=== PATIENT | female | born 1960 | race Caucasian/White ===

== ENCOUNTER 2022-07-26 11:25 | Inpatient (IN) | payer OTHER, SELFPAY ==
--- NOTE | 2022-07-26 11:36 | P.CONHOSP_ITS ---
History of Present Illness Data of Consult Service Date: 07/26/22 Primary Care Provider: Андрей Beth MD HPI Reason for consult: Admission H&P Pt is a 62-year-old female with a PMH significant for?COPD, [id number] ependent diabetes, IBS, depression, schizoaffective disorder depressive type, and s/p lap band surgery in 2007 who is admitted to [facility] for possible intentional ingestion of four days worth of medications and increasing forgetfulness over the past year. Medical consult for admission H&P. ?Pt initially presented to [facility] ED on 07/19. Was diagnosed with pneumonia outpatient but did not start abx until admitted to hospital, finished a 5-day course of azithromycin on 07/24. Pt currently complains of cough x2 weeks, occasionally productive of whitish sputum. Denies SOB. Has chronic hip pain s econdary to arthritis. Complains of chronic constipation, says has not had a bowel movement recently and that linaclotide is the only medication that works for her. Otherwise has no acute complaints. Denies chest pain/pressure, palpitations. No fever, chills, N/V, diarrhea. Denies abdominal pain. Labs reviewed, significant for slightly low B12 of 179. Review of Systems Review of Systems: Cough x2 weeks, occasionally productive of whitish sputum Chronic constipation Chronic bilateral hip pain Denies shortness of breath No chest pain/pressure, palpitations Denies fever, chills, nausea, vomiting, diarrhea No abdominal pain Yes all other systems are reviewed and are negative PMFSH Social History Household Members: Family Household Members Other:: lives with cousin [facility] Housing: Apartment Do you presently have visiting nurse or other home services: No Patient Tobacco Use Status: Current everyday Tobacco user Tobacco use type: Cigarette Cigarette Packs Per Day: 1 Cigarettes Per Day: 6 Smoked in Last 30 Days: Yes e-Cigarette/Vaping Use: Never Used Patient Interested in Nicotine Replacement: Yes Patient Given Instructions on How to Stop Smoking: Yes Date Education Initiated: 07/26/22 Second Hand Smoke Exposure: Yes Use of substances other than those prescribed or required for medical reasons: No Currently Displaying Signs/Symptoms of Drug Intoxication Withdrawal: No Any prior treatment program specific to substance use: No Have you been hit, kicked, punched, or otherwise hurt by someone within the past year? If so, by whom?: No Do you feel safe in your current relationship?: Yes Is there a partner from a previous relationship who is making you feel unsafe now?: No Are you made to feel afraid or neglected: No Advance Directives: No Advance Directives Information Provided: No (Declined) Do you have thoughts of harming others: None and Vague Do you have a plan to hurt others: No Plan Recently lost weight without trying: No How much weight loss: Not applicable Eating poorly because of decreased appetite: Yes Nutrition screen score: 1 Nutrition Risks: Poor intake 0-25% >4 days Patient : No : No Poor oral hygiene: No Meds Allergies Allergy/AdvReac Type Severity Reaction Status Date / Time bupropion [From WELLBUTRIN] Allergy Unknown ITCHING Unverified 07/15/20 14:14 morphine [MORPHINE] Allergy Unknown ITCHING Unverified 07/15/20 14:14 nicotine [From Nicoderm CQ] AdvReac Mild SKIN Unverified 07/15/20 14:14 IRRITATION Active Medications: Current Medications Acetaminophen (Acetaminophen 325 Mg Tablet) 650 mg PO Q6H PRN PRN Reason: Headache/Pain Mild Scale (1-3) Al Hydroxide/Mg Hydroxide (Magnesium Hydrox/Alum Hydrox 30 Ml Oral.Susp) 30 ml PO Q6H PRN PRN Reason: Heartburn/Nausea Hydroxyzine HCl (Hydroxyzine Hcl 25 Mg Tablet) 25 mg PO Q6H PRN PRN Reason: Anxiety Magnesium Hydroxide (Milk Of Magnesia 30 Ml Oral.Susp) 30 ml PO DAILY PRN PRN Reason: Constipation Trazodone HCl (Trazodone Hcl 50 Mg Tablet) 50 mg PO BEDTIME MRX1 PRN PRN Reason: Insomnia Home Medications Medication Instructions Recorded Confirmed Last Taken Type albuterol sulfate 90 mcg/actuation 90 mcg inhalation 4-6XD 07/25/22 07/25/22 Unknown History aerosol inhaler (Ventolin HFA) atorvastatin 10 mg tablet 10 mg PO DAILY 07/25/22 07/25/22 Unknown History azithromycin 500 tab PO DAILY 07/25/22 07/25/22 Unknown History benzonatate 100 mg capsule 100 mg PO TID 07/25/22 07/25/22 Unknown History cholecalciferol (vitamin D3) 2,000 units PO DAILY 07/25/22 07/25/22 Unknown History clonazepam 0.5 mg tablet 0.5 mg PO TID PRN Anxiety 07/25/22 07/25/22 Unknown History cyanocobalamin (vitamin B-12) See Rx Instructions .Route .COMPLEX 07/25/22 07/25/22 Unknown History 1,000 mcg tablet docusate sodium 100 mg capsule 100 mg PO DAILY 07/25/22 07/25/22 Unknown History enoxaparin 40 mg/0.4 mL 40 mg subcut DAILY 07/25/22 07/25/22 Unknown History subcutaneous syringe (Lovenox) gabapentin 300 mg capsule 400 mg PO TID 07/25/22 07/25/22 Unknown History linaclotide 145 mcg capsule 145 mcg PO DAILY 07/25/22 07/25/22 Unknown History (Linzess) lurasidone 80 mg tablet 80 mg PO DAILY 07/25/22 07/25/22 Unknown History metformin 500 mg tablet 500 mg PO BID 07/25/22 07/25/22 Unknown History montelukast 10 mg tablet 10 mg PO DAILY 07/25/22 07/25/22 Unknown History nicotine 14 mg/24 hr daily 1 patch topical DAILY 07/25/22 07/25/22 Unknown History transdermal patch omeprazole 20 mg capsule,delayed 20 mg PO DAILY 07/25/22 07/25/22 Unknown History release quetiapine 200 mg tablet 200 mg PO BEDTIME 07/25/22 07/25/22 Unknown History quetiapine 50 mg tablet 75 mg PO BID 07/25/22 07/25/22 Unknown History topiramate 100 mg tablet 100 mg PO DAILY 07/25/22 07/25/22 Unknown History vilazodone 40 mg tablet (Viibryd) 40 mg PO DAILY 07/25/22 07/25/22 Unknown History vitamin B complex (Vitamins B 1 tab PO DAILY 07/25/22 07/25/22 Unknown History Complex tablet) Physical Exam Vital Signs and Narrative: Constitutional: Alert, in no acute distress. Mental Status: Oriented to person, place and time. Eyes: Pupils are equal, round, and reactive to light. Ear, Nose, and Throat: Oropharynx clear, mucous membranes moist. Ears and nose without deformities. Trachea midline. Respiratory: Diffuse expiratory rhonchi bilaterally. Cardiovascular: S1, S2 regular. No murmurs, rubs, or gallops. Gastrointestinal: Abdomen soft, non-distended, mild diffuse tenderness. Normal bowel sounds. Neurologic: Cranial nerves II-XII are grossly intact bilaterally. No focal neurological deficits. Moves all extremities spontaneously. Skin: No rashes or lesions noted. Musculoskeletal: No cyanosis or clubbing. Extremities: No edema. Psychiatric: Normal mood and affect. Assessment and Plan (1) Routine history and physical examination of adult: Status: Acute Plan Pt is a 62-year-old female with a PMH significant for?COPD, [id number] diabetes, IBS, depression, schizoaffective disorder depressive type, and s/p lap band surgery in 2007 who is admitted to [facility] for possible intentional ingestion of four days worth of medications and increasing forgetfulness over the past year. Medical consult for admission H&P. Mood disorder Plan as per Psychiatry Community acquired pneumonia Diagnosed with pneumonia outpatient, not started on abx until admitted to [facility] on 07/19 Started on a 5-day course of azithromycin, finished on 07/24 CXR negative at [facility] COPD Not in acute exacerbation, not hypoxic Lungs with rhonchi throughout Continue home inhalers Continue benzonatate DuoNebs q.6 while awake until lungs sound better Incentive spirometry q2hrs Low Vitamin B12 Pt's B12 slightly low at 179 Continue cyanocobalamin, Vitamin B Complex supplement Contipation/IBS Continue linaclotide Vlw-aetkbyo-cnzqzyvuy diabetes Diabetic diet Continue metformin Thank you for allowing us to participate in the care of this patient. Signing off at this time. Please let us know if there are any acute complaints or questions. Time Spent With Patient Time: Total time managing care of this patient today ____ minutes.
[2022-07-26 11:43] VITALS: BP 141/63; PULSE 83; RESP 20; TEMP 35.9; O2SAT 92
[2022-07-26 11:44] VITALS: BMI 28.0
--- NOTE | 2022-07-26 13:18 | PC.ADMIT ---
Crissy arrived to [facility] from [facility] at 11:35 am, Pt signed a CV upon arrival. Assessment was completed with patient and crisis assessment. Precipitants of admission include unintentional toxic ingestion, unsure what she ingested. Patient A+Ox3, Pleasant and cooperative during admission. Pt reports having hearing loss and wears hearing aids, and glasses, she had left them at her apartment. Pt reports feeling angry and depressed at times. Thought process appears clear, organized and linear. pt reports poor appetite, has false teeth at home but has no difficulties with regular diet. She reports no problem with falling asleep its staying asleep which a issue. Pt reports hx of falls due to unsteady gait, uses a cane at home. Pt occasional incontinent of bladder and has history of IBS. Pt denies any physical complaints at this time. 5 minute safety checks initiated.
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
[2022-07-26] MEDS: Gabapentin 400 MG CAPSULE PO ×2 (14:38→21:04)
[2022-07-26] MEDS: Cyanocobalamin (Vitamin B-12) 1,000 MCG TABLET 1000 MCG PO (14:38)
[2022-07-26 15:37] VITALS: PULSE 81; RESP 18; O2SAT 97
[2022-07-26] MEDS: Albuterol/Iprat 2.5/0.5MG 3 ML AMPUL.NEB INHALE ×2 (15:37→20:50)
[2022-07-26 18:00] VITALS: BP 141/72; PULSE 97; RESP 18; TEMP 36.1; O2SAT 97
[2022-07-26 20:50] VITALS: PULSE 81; RESP 18; O2SAT 97
[2022-07-26] MEDS: QUEtiapine Fumarate 25 MG TABLET 75 MG PO (21:04)
[2022-07-26] MEDS: QUEtiapine Fumarate 200 MG TABLET PO (21:05)
[2022-07-26] MEDS: metFORMIN HCl 500 MG TABLET PO (21:05)
[2022-07-26] MEDS: clonazePAM 0.5 MG TABLET PO (21:19)
[2022-07-26] MEDS: traZODone HCL 50 MG TABLET PO (21:31)
[2022-07-27 00:49] LABS: Glucose, Whole Blood 232 mg/dL (60-115)
[2022-07-27 08:00] VITALS: BP 125/64; PULSE 85; RESP 16; TEMP 35.5; O2SAT 96
[2022-07-27] MEDS: QUEtiapine Fumarate 25 MG TABLET 75 MG PO ×2 (08:28→20:56)
[2022-07-27] MEDS: Lurasidone HCl 80 MG TABLET PO (08:29)
[2022-07-27] MEDS: Gabapentin 400 MG CAPSULE PO ×3 (08:29→20:55)
[2022-07-27] MEDS: Omeprazole 20 MG CAPSULE.DR PO (08:29)
[2022-07-27] MEDS: Multivitamin TABLET 1 TAB PO (08:29)
[2022-07-27] MEDS: Topiramate 100 MG TABLET PO (08:29)
[2022-07-27] MEDS: Cholecalciferol (Vitamin D3) 25 MCG TABLET 50 MCG PO (08:29)
[2022-07-27] MEDS: Cyanocobalamin (Vitamin B-12) 1,000 MCG TABLET 1000 MCG PO (08:29)
[2022-07-27] MEDS: Vilazodone HCL 40 MG TABLET PO (08:29)
[2022-07-27] MEDS: metFORMIN HCl 500 MG TABLET PO ×2 (08:29→20:55)
[2022-07-27] MEDS: Docusate Sodium 100 MG CAPSULE PO (08:29)
[2022-07-27] MEDS: Nicotine 14 MG PATCH.TD24 TRANSDERMA (08:30)
[2022-07-27 09:00] LABS: Anion Gap 14 (12-20); Blood Urea Nitrogen 20 mg/dL (9-16); Calcium 9.5 mg/dL (8.4-10.2); Carbon Dioxide 23 mmol/L (22-29); Chloride 109 mmol/L (96-108); Creatinine Clr Calc Pharmacy 40.6; Estimated Glomerular Filt Rate 36; Glucose Random 150 mg/dL (60-115); Potassium 4.3 mmol/L (3.3-5.1); Sodium 142 mmol/L (135-145)
[2022-07-27] MEDS: clonazePAM 0.5 MG TABLET PO ×2 (09:13→21:13)
[2022-07-27] MEDS: Albuterol/Iprat 2.5/0.5MG 3 ML AMPUL.NEB INHALE ×2 (13:21→20:17)
[2022-07-27 13:22] VITALS: PULSE 76; RESP 18; O2SAT 97
--- NOTE | 2022-07-27 14:51 | P.PNPSI_ITS ---
Subjective Subjective Date of Service: 07/27/22 Reason For Visit: TAVIA with Psychotic Features PTSD Subjective Notes: Conditional Voluntary Interim History: The nursing staff reported the patient had been compliant with treatment, she slept well last night. She adamantly denies active suicidal ideation and she is able to contract for safety. On interview the patient denies new symptoms she states that she is feeling fine. The social professionals reported that her daughter contact us and we will have a family meeting early next week. Mental Status Exam Mental Status Exam Patient Appearance: Well Grooomed and Appropriate Patient Orientation: Person and Situation Level of Consciousness: Awake and Appropriate Patient Behavior: Guarded and Passive Mood Description: Calm and Constricted Affect Description: Depressed Patient Cognition Impaired: Yes Ability to Follow Directions: Good Speech Pattern: Clear Hallucinations: None Delusions: Not Present Thought Process: Linear Thought Content: positive for Circumstantial Judgement: Fair Diagnostics Vital Signs (24Hr): Vital Signs - 24 hr 07/26/22 15:37 07/26/22 20:50 07/26/22 18:00 Temperature 96.9 F Pulse Rate 81 81 97 Respiratory Rate 18 18 18 Blood Pressure 141/72 H Pulse Oximetry 97 Oxygen Delivery Method Room Air 07/27/22 08:00 07/27/22 13:22 Temperature 96 F L Pulse Rate 85 76 Respiratory Rate 16 18 Blood Pressure 125/64 Pulse Oximetry 96 Oxygen Delivery Method Room Air BMI result Body Mass Index 28.0 Labs 07/27/22 08:16 Labs: Laboratory Results - last 48 hr 07/26/22 07/27/22 21:18 08:16 Sodium 142 Potassium 4.3 Chloride 109 H Carbon Dioxide 23 Anion Gap 14 BUN 20 H Creatinine 1.48 H Estim Creat Clear Calc 40.6 Estimated GFR 36 POC Glucose 232 H Random Glucose 150 H Calcium 9.5 Medications Medications Current Medications Acetaminophen (Acetaminophen 325 Mg Tablet) 650 mg PO Q6H PRN PRN Reason: Headache/Pain Mild Scale (1-3) Al Hydroxide/Mg Hydroxide (Magnesium Hydrox/Alum Hydrox 30 Ml Oral.Susp) 30 ml PO Q6H PRN PRN Reason: Heartburn/Nausea Albuterol Sulfate (Albuterol Sulfate 90 Mcg 8 Gm Inhaler) 2 puff INHALE Q4H PRN PRN Reason: Shortness of Breath/Wheezing Albuterol/Ipratropium (Albuterol/Iprat 2.5/0.5mg 3 Ml Ampul.Neb) 3 ml INHALE RQ6H WHILE AWAKE [facility] Last Admin: 07/27/22 13:21 Dose: 3 ml Atorvastatin Calcium (Atorvastatin Calcium 10 Mg Tablet) 10 mg PO BEDTIME [facility] Benzonatate (Benzonatate 100 Mg Capsule) 100 mg PO TID PRN PRN Reason: coughing Clonazepam (Clonazepam 0.5 Mg Tablet) 0.5 mg PO TID PRN PRN Reason: Anxiety Last Admin: 07/27/22 09:13 Dose: 0.5 mg Cyanocobalamin (Cyanocobalamin (Vitamin B-12) 1,000 Mcg Tablet) 1,000 mcg PO DAILY [facility] Last Admin: 07/27/22 08:29 Dose: 1,000 mcg Docusate Sodium (Docusate Sodium 100 Mg Capsule) 100 mg PO DAILY [facility] Last Admin: 07/27/22 08:29 Dose: 100 mg Enoxaparin Sodium (Enoxaparin Sodium 40 Mg/0.4 Ml Syringe) 40 mg SUBCUT DAILY S Last Admin: 07/27/22 10:23 Dose: Not Given Gabapentin (Gabapentin 400 Mg Capsule) 400 mg PO TID [facility] Last Admin: 07/27/22 08:29 Dose: 400 mg Hydroxyzine HCl (Hydroxyzine Hcl 25 Mg Tablet) 25 mg PO Q6H PRN PRN Reason: Anxiety Lurasidone HCl (Lurasidone Hcl 80 Mg Tablet) 80 mg PO DAILY [facility] Last Admin: 07/27/22 08:29 Dose: 80 mg Magnesium Hydroxide (Milk Of Magnesia 30 Ml Oral.Susp) 30 ml PO DAILY PRN PRN Reason: Constipation Metformin HCl (Metformin Hcl 500 Mg Tablet) 500 mg PO BID [facility] Last Admin: 07/27/22 08:29 Dose: 500 mg Montelukast Sodium (Montelukast Sodium 10 Mg Tablet) 10 mg PO BEDTIME [facility] Multivitamins/Vitamin C (Multivitamin Tablet) 1 tab PO DAILY [facility] Last Admin: 07/27/22 08:29 Dose: 1 tab Nicotine (Nicotine 14 Mg Patch.Td24) 14 mg TRANSDERMA DAILY [facility] Last Admin: 07/27/22 08:30 Dose: 14 mg Non-Formulary Medication (Linaclotide [Linzess]) 145 mcg PO DAILY [facility] Omeprazole (Omeprazole 20 Mg Capsule.Dr) 20 mg PO DAILY@0630 [facility] Last Admin: 07/27/22 08:29 Dose: 20 mg Quetiapine Fumarate (Quetiapine Fumarate 25 Mg Tablet) 75 mg PO BID [facility] Last Admin: 07/27/22 08:28 Dose: 75 mg Quetiapine Fumarate (Quetiapine Fumarate 200 Mg Tablet) 200 mg PO BEDTIME [facility] Last Admin: 07/26/22 21:05 Dose: 200 mg Topiramate (Topiramate 100 Mg Tablet) 100 mg PO DAILY [facility] Last Admin: 07/27/22 08:29 Dose: 100 mg Trazodone HCl (Trazodone Hcl 50 Mg Tablet) 50 mg PO BEDTIME MRX1 PRN PRN Reason: Insomnia Last Admin: 07/26/22 21:31 Dose: 50 mg Vilazodone HCl (Vilazodone Hcl 40 Mg Tablet) 40 mg PO DAILY [facility] Last Admin: 07/27/22 08:29 Dose: 40 mg Vitamin D (Cholecalciferol (Vitamin D3) 25 Mcg Tablet) 50 mcg PO DAILY [facility] Last Admin: 07/27/22 08:29 Dose: 50 mcg Allergies Allergies Allergy/AdvReac Type Severity Reaction Status Date / Time bupropion [From WELLBUTRIN] Allergy Unknown ITCHING Unverified 07/15/20 14:14 morphine [MORPHINE] Allergy Unknown ITCHING Unverified 07/15/20 14:14 nicotine [From Nicoderm CQ] AdvReac Mild SKIN Unverified 07/15/20 14:14 IRRITATION Assessment & Plan Assessment & Plan (1) Major depressive disorder: Status: Acute Code(s): F32.9 - Major depressive disorder, single episode, unspecified Plan The patient is an elderly female with a prior history of major depressive disorder, PTSD and other traumatic experiences admitted for an overdose of medications in a possible suicidal attempt. According to the physician on on [facility], she admitted suicidal ideation but on interview she adamantly denies self-harming behavior. Plan 1. Gather collateral information. 2. Continue with antidepressants other medications. 3. Continue medical workout. 4. Fifteen minute checks. Reason for continued inpatient stay Substantial Risk for: inability to function, rapid decompensation and med/psych decompensation Time Spent With Patient Time: Total time managing care of this patient today ____ minutes.
[2022-07-27 18:00] VITALS: BP 118/56; PULSE 77; RESP 18; TEMP 36; O2SAT 95
[2022-07-27 20:17] VITALS: PULSE 71; RESP 12; O2SAT 100
[2022-07-27] MEDS: Atorvastatin Calcium 10 MG TABLET PO (20:55)
[2022-07-27] MEDS: Montelukast Sodium 10 MG TABLET PO (20:56)
[2022-07-27] MEDS: QUEtiapine Fumarate 200 MG TABLET PO (20:56)
[2022-07-27] MEDS: Magnesium Hydrox/Alum Hydrox 30 ML ORAL.SUSP PO (21:13)
[2022-07-27] MEDS: traZODone HCL 50 MG TABLET PO (21:13)
[2022-07-28 08:15] VITALS: PULSE 72; RESP 12; O2SAT 99
[2022-07-28] MEDS: Albuterol/Iprat 2.5/0.5MG 3 ML AMPUL.NEB INHALE ×3 (08:15→20:30)
[2022-07-28 08:35] VITALS: BP 140/69; PULSE 101; RESP 16; TEMP 36.1; O2SAT 93
[2022-07-28] MEDS: Gabapentin 400 MG CAPSULE PO ×3 (08:42→21:12)
[2022-07-28] MEDS: QUEtiapine Fumarate 25 MG TABLET 75 MG PO ×2 (08:42→21:13)
[2022-07-28] MEDS: Lurasidone HCl 80 MG TABLET PO (08:42)
[2022-07-28] MEDS: Cholecalciferol (Vitamin D3) 25 MCG TABLET 50 MCG PO (08:42)
[2022-07-28] MEDS: Vilazodone HCL 40 MG TABLET PO (08:42)
[2022-07-28] MEDS: Docusate Sodium 100 MG CAPSULE PO (08:42)
[2022-07-28] MEDS: Cyanocobalamin (Vitamin B-12) 1,000 MCG TABLET 1000 MCG PO (08:42)
[2022-07-28] MEDS: Omeprazole 20 MG CAPSULE.DR PO (08:42)
[2022-07-28] MEDS: Topiramate 100 MG TABLET PO (08:42)
[2022-07-28] MEDS: metFORMIN HCl 500 MG TABLET PO ×2 (08:43→21:12)
[2022-07-28] MEDS: Multivitamin TABLET 1 TAB PO (08:43)
[2022-07-28] MEDS: Nicotine 14 MG PATCH.TD24 TRANSDERMA (08:46)
[2022-07-28] MEDS: Enoxaparin Sodium 40 MG/0.4 ML SYRINGE SUBCUT (08:47)
--- NOTE | 2022-07-28 08:59 | P.PNPSI_ITS ---
Subjective Subjective Date of Service: 07/28/22 Reason For Visit: TAVIA with Psychotic Features PTSD Subjective Notes: Conditional Voluntary Interim History: The nursing staff reported the patient denies anxiety depression she feels okay she shower last night she has been isolative pleasant active good interactions one-to-one. She was seen talking over the phone. Later on she admitted anxiety depression 09/15. The staff noticed the patient complained of gastric discomfort, she has a history of IBS. On interview the patient denies new symptoms she reports that she is safe in the unit. Mental Status Exam Mental Status Exam Patient Appearance: Well Grooomed and Appropriate Patient Orientation: Person and Situation Level of Consciousness: Awake and Appropriate Patient Behavior: Guarded and Passive Mood Description: Calm and Constricted Affect Description: Constricted Patient Cognition Impaired: Yes Ability to Follow Directions: Good Speech Pattern: Clear and Appropriate Hallucinations: None Delusions: Not Present Thought Process: Linear Thought Content: positive for [place] and positive for Circumstantial Judgement: Fair Diagnostics Vital Signs (24Hr): Vital Signs - 24 hr 07/27/22 13:22 07/27/22 20:17 07/27/22 18:00 Temperature 96.8 F Pulse Rate 76 71 77 Respiratory Rate 18 12 18 Blood Pressure 118/56 L Pulse Oximetry 95 Oxygen Delivery Method Room Air 07/28/22 08:15 07/28/22 08:35 Temperature 96.9 F Pulse Rate 72 101 H Respiratory Rate 12 16 Blood Pressure 140/69 H Pulse Oximetry 93 Oxygen Delivery Method Room Air BMI result Body Mass Index 28.0 Labs 07/27/22 08:16 Labs: Laboratory Results - last 48 hr 07/26/22 07/27/22 21:18 08:16 Sodium 142 Potassium 4.3 Chloride 109 H Carbon Dioxide 23 Anion Gap 14 BUN 20 H Creatinine 1.48 H Estim Creat Clear Calc 40.6 Estimated GFR 36 POC Glucose 232 H Random Glucose 150 H Calcium 9.5 Medications Medications Current Medications Acetaminophen (Acetaminophen 325 Mg Tablet) 650 mg PO Q6H PRN PRN Reason: Headache/Pain Mild Scale (1-3) Al Hydroxide/Mg Hydroxide (Magnesium Hydrox/Alum Hydrox 30 Ml Oral.Susp) 30 ml PO Q6H PRN PRN Reason: Heartburn/Nausea Last Admin: 07/27/22 21:13 Dose: 30 ml Albuterol Sulfate (Albuterol Sulfate 90 Mcg 8 Gm Inhaler) 2 puff INHALE Q4H PRN PRN Reason: Shortness of Breath/Wheezing Albuterol/Ipratropium (Albuterol/Iprat 2.5/0.5mg 3 Ml Ampul.Neb) 3 ml INHALE RQ6H WHILE AWAKE [facility] Last Admin: 07/28/22 08:15 Dose: 3 ml Atorvastatin Calcium (Atorvastatin Calcium 10 Mg Tablet) 10 mg PO BEDTIME [facility] Last Admin: 07/27/22 20:55 Dose: 10 mg Benzonatate (Benzonatate 100 Mg Capsule) 100 mg PO TID PRN PRN Reason: coughing Clonazepam (Clonazepam 0.5 Mg Tablet) 0.5 mg PO TID PRN PRN Reason: Anxiety Last Admin: 07/27/22 21:13 Dose: 0.5 mg Cyanocobalamin (Cyanocobalamin (Vitamin B-12) 1,000 Mcg Tablet) 1,000 mcg PO DAILY [facility] Last Admin: 07/28/22 08:42 Dose: 1,000 mcg Docusate Sodium (Docusate Sodium 100 Mg Capsule) 100 mg PO DAILY [facility] Last Admin: 07/28/22 08:42 Dose: 100 mg Enoxaparin Sodium (Enoxaparin Sodium 40 Mg/0.4 Ml Syringe) 40 mg SUBCUT DAILY [facility] Last Admin: 07/28/22 08:47 Dose: 40 mg Gabapentin (Gabapentin 400 Mg Capsule) 400 mg PO TID [facility] Last Admin: 07/28/22 08:42 Dose: 400 mg Hydroxyzine HCl (Hydroxyzine Hcl 25 Mg Tablet) 25 mg PO Q6H PRN PRN Reason: Anxiety Lurasidone HCl (Lurasidone Hcl 80 Mg Tablet) 80 mg PO DAILY [facility] Last Admin: 07/28/22 08:42 Dose: 80 mg Magnesium Hydroxide (Milk Of Magnesia 30 Ml Oral.Susp) 30 ml PO DAILY PRN PRN Reason: Constipation Metformin HCl (Metformin Hcl 500 Mg Tablet) 500 mg PO BID [facility] Last Admin: 07/28/22 08:43 Dose: 500 mg Montelukast Sodium (Montelukast Sodium 10 Mg Tablet) 10 mg PO BEDTIME [facility] Last Admin: 07/27/22 20:56 Dose: 10 mg Multivitamins/Vitamin C (Multivitamin Tablet) 1 tab PO DAILY [facility] Last Admin: 07/28/22 08:43 Dose: 1 tab Nicotine (Nicotine 14 Mg Patch.Td24) 14 mg TRANSDERMA DAILY [facility] Last Admin: 07/28/22 08:46 Dose: 14 mg Non-Formulary Medication (Linaclotide [Linzess]) 145 mcg PO DAILY [facility] Omeprazole (Omeprazole 20 Mg Capsule.Dr) 20 mg PO DAILY@0630 [facility] Last Admin: 07/28/22 08:42 Dose: 20 mg Quetiapine Fumarate (Quetiapine Fumarate 25 Mg Tablet) 75 mg PO BID [facility] Last Admin: 07/28/22 08:42 Dose: 75 mg Quetiapine Fumarate (Quetiapine Fumarate 200 Mg Tablet) 200 mg PO BEDTIME [facility] Last Admin: 07/27/22 20:56 Dose: 200 mg Topiramate (Topiramate 100 Mg Tablet) 100 mg PO DAILY [facility] Last Admin: 07/28/22 08:42 Dose: 100 mg Trazodone HCl (Trazodone Hcl 50 Mg Tablet) 50 mg PO BEDTIME MRX1 PRN PRN Reason: Insomnia Last Admin: 07/27/22 21:13 Dose: 50 mg Vilazodone HCl (Vilazodone Hcl 40 Mg Tablet) 40 mg PO DAILY [facility] Last Admin: 07/28/22 08:42 Dose: 40 mg Vitamin D (Cholecalciferol (Vitamin D3) 25 Mcg Tablet) 50 mcg PO DAILY [facility] Last Admin: 07/28/22 08:42 Dose: 50 mcg Allergies Allergies Allergy/AdvReac Type Severity Reaction Status Date / Time bupropion [From WELLBUTRIN] Allergy Unknown ITCHING Unverified 07/15/20 14:14 morphine [MORPHINE] Allergy Unknown ITCHING Unverified 07/15/20 14:14 nicotine [From Nicoderm CQ] AdvReac Mild SKIN Unverified 07/15/20 14:14 IRRITATION Assessment & Plan Assessment & Plan (1) Major depressive disorder: Status: Acute Code(s): F32.9 - Major depressive disorder, single episode, unspecified Plan The patient is an elderly female with a prior history of major depressive disorder, PTSD and other traumatic experiences admitted for an overdose of medications in a possible suicidal attempt. According to the physi julio on on [facility], she admitted suicidal ideation but on interview she adamantly denies self-harming behavior. Plan 1. Gather collateral information. 2. Continue with antidepressants other medications. 3. Continue medical workout. 4. Fifteen minute checks. Reason for continued inpatient stay Substantial Risk for: inability to function, rapid decompensation and med/psych decompensation Time Spent With Patient Time: Total time managing care of this patient today __20 __ minutes.
[2022-07-28 11:14] LABS: Glucose, Whole Blood 168 mg/dL (60-115)
[2022-07-28] MEDS: clonazePAM 0.5 MG TABLET PO ×2 (13:21→21:28)
[2022-07-28] MEDS: Acetaminophen 325 MG TABLET 650 MG PO ×2 (13:22→18:43)
[2022-07-28 16:04] VITALS: PULSE 73; RESP 16; O2SAT 98
[2022-07-28 18:53] VITALS: BP 155/60; PULSE 88; RESP 18; TEMP 36.2; O2SAT 96
[2022-07-28 20:30] VITALS: PULSE 70; RESP 16; O2SAT 98
[2022-07-28] MEDS: QUEtiapine Fumarate 200 MG TABLET PO (21:11)
[2022-07-28] MEDS: Atorvastatin Calcium 10 MG TABLET PO (21:11)
[2022-07-28] MEDS: Montelukast Sodium 10 MG TABLET PO (21:12)
[2022-07-28] MEDS: traZODone HCL 50 MG TABLET PO (21:28)
[2022-07-29] MEDS: Acetaminophen 325 MG TABLET 650 MG PO (01:22)
[2022-07-29] MEDS: traZODone HCL 50 MG TABLET PO ×2 (01:22→22:30)
[2022-07-29] MEDS: Albuterol/Iprat 2.5/0.5MG 3 ML AMPUL.NEB INHALE ×2 (08:17→22:28)
[2022-07-29 08:18] VITALS: PULSE 70; RESP 16; O2SAT 96
[2022-07-29 08:57] VITALS: BP 151/63; PULSE 96; RESP 18; TEMP 36.2; O2SAT 95
--- NOTE | 2022-07-29 09:06 | P.PNPSI_ITS ---
Subjective Subjective Date of Service: 07/29/22 Reason For Visit: TAVIA with Psychotic Features PTSD Subjective Notes: Conditional Voluntary Interim History: The nursing staff reported the patient had complained of cough. In the middle night she complained of headaches and she received Tylenol with for wrist bones. On interview the patient denies suicidal ideation, no safety concerns. Compliant with treatment. Mental Status Exam Mental Status Exam Patient Appearance: Well Grooomed and Appropriate Patient Orientation: Person and Situation Level of Consciousness: Awake and Appropriate Patient Behavior: Guarded and Passive Mood Description: Calm Affect Description: Constricted Patient Cognition Impaired: Yes Ability to Follow Directions: Good Speech Pattern: Clear Hallucinations: None Delusions: Not Present Thought Process: Linear Thought Content: positive for [place] and positive for Circumstantial Judgement: Fair Diagnostics Vital Signs (24Hr): Vital Signs - 24 hr 07/28/22 16:04 07/28/22 18:53 07/28/22 20:30 Temperature 97.2 F Pulse Rate 73 88 70 Respiratory Rate 16 18 16 Blood Pressure 155/60 H Pulse Oximetry 96 Oxygen Delivery Method Room Air 07/29/22 08:18 07/29/22 08:57 Temperature 97.2 F Pulse Rate 70 96 Respiratory Rate 16 18 Blood Pressure 151/63 H Pulse Oximetry 95 Oxygen Delivery Method Room Air BMI result Body Mass Index 28.0 Labs 07/27/22 08:16 Labs: Laboratory Results - last 48 hr 07/28/22 11:09 POC Glucose 168 H Medications Medications Current Medications Acetaminophen (Acetaminophen 325 Mg Tablet) 650 mg PO Q6H PRN PRN Reason: Headache/Pain Mild Scale (1-3) Last Admin: 07/29/22 01:22 Dose: 650 mg Al Hydroxide/Mg Hydroxide (Magnesium Hydrox/Alum Hydrox 30 Ml Oral.Susp) 30 ml PO Q6H PRN PRN Reason: Heartburn/Nausea Last Admin: 07/27/22 21:13 Dose: 30 ml Albuterol Sulfate (Albuterol Sulfate 90 Mcg 8 Gm Inhaler) 2 puff INHALE Q4H PRN PRN Reason: Shortness of Breath/Wheezing Albuterol/Ipratropium (Albuterol/Iprat 2.5/0.5mg 3 Ml Ampul.Neb) 3 ml INHALE RQ6H WHILE AWAKE [facility] Last Admin: 07/29/22 08:17 Dose: 3 ml Atorvastatin Calcium (Atorvastatin Calcium 10 Mg Tablet) 10 mg PO BEDTIME [facility] Last Admin: 07/28/22 21:11 Dose: 10 mg Benzonatate (Benzonatate 100 Mg Capsule) 100 mg PO TID PRN PRN Reason: coughing Clonazepam (Clonazepam 0.5 Mg Tablet) 0.5 mg PO TID PRN PRN Reason: Anxiety Last Admin: 07/28/22 21:28 Dose: 0.5 mg Cyanocobalamin (Cyanocobalamin (Vitamin B-12) 1,000 Mcg Tablet) 1,000 mcg PO DAILY [facility] Last Admin: 07/28/22 08:42 Dose: 1,000 mcg Docusate Sodium (Docusate Sodium 100 Mg Capsule) 100 mg PO DAILY [facility] Last Admin: 07/28/22 08:42 Dose: 100 mg Gabapentin (Gabapentin 400 Mg Capsule) 400 mg PO TID [facility] Last Admin: 07/28/22 21:12 Dose: 400 mg Hydroxyzine HCl (Hydroxyzine Hcl 25 Mg Tablet) 25 mg PO Q6H PRN PRN Reason: Anxiety Lurasidone HCl (Lurasidone Hcl 80 Mg Tablet) 80 mg PO DAILY [facility] Last Admin: 07/28/22 08:42 Dose: 80 mg Magnesium Hydroxide (Milk Of Magnesia 30 Ml Oral.Susp) 30 ml PO DAILY PRN PRN Reason: Constipation Metformin HCl (Metformin Hcl 500 Mg Tablet) 500 mg PO BID [facility] Last Admin: 07/28/22 21:12 Dose: 500 mg Montelukast Sodium (Montelukast Sodium 10 Mg Tablet) 10 mg PO BEDTIME [facility] Last Admin: 07/28/22 21:12 Dose: 10 mg Multivitamins/Vitamin C (Multivitamin Tablet) 1 tab PO DAILY [facility] Last Admin: 07/28/22 08:43 Dose: 1 tab Nicotine (Nicotine 14 Mg Patch.Td24) 14 mg TRANSDERMA DAILY [facility] Last Admin: 07/28/22 08:46 Dose: 14 mg Pt Own(Linaclotide [ Linzess] 145 Mcg Capsule) 145 mcg PO DAILY [facility] Omeprazole (Omeprazole 20 Mg Capsule.Dr) 20 mg PO DAILY@0630 [facility] Last Admin: 07/28/22 08:42 Dose: 20 mg Quetiapine Fumarate (Quetiapine Fumarate 25 Mg Tablet) 75 mg PO BID [facility] Last Admin: 07/28/22 21:13 Dose: 75 mg Quetiapine Fumarate (Quetiapine Fumarate 200 Mg Tablet) 200 mg PO BEDTIME [facility] Last Admin: 07/28/22 21:11 Dose: 200 mg Topiramate (Topiramate 100 Mg Tablet) 100 mg PO DAILY [facility] Last Admin: 07/28/22 08:42 Dose: 100 mg Trazodone HCl (Trazodone Hcl 50 Mg Tablet) 50 mg PO BEDTIME MRX1 PRN PRN Reason: Insomnia Last Admin: 07/29/22 01:22 Dose: 50 mg Vilazodone HCl (Vilazodone Hcl 40 Mg Tablet) 40 mg PO DAILY [facility] Last Admin: 07/28/22 08:42 Dose: 40 mg Vitamin D (Cholecalciferol (Vitamin D3) 25 Mcg Tablet) 50 mcg PO DAILY [facility] Last Admin: 07/28/22 08:42 Dose: 50 mcg Allergies Allergies Allergy/AdvReac Type Severity Reaction Status Date / Time bupropion [From WELLBUTRIN] Allergy Unknown ITCHING Unverified 07/15/20 14:14 morphine [MORPHINE] Allergy Unknown ITCHING Unverified 07/15/20 14:14 nicotine [From Nicoderm CQ] AdvReac Mild SKIN Unverified 07/15/20 14:14 IRRITATION Assessment & Plan Assessment & Plan (1) Major depressive disorder: Status: Acute Code(s): F32.9 - Major depressive disorder, single episode, unspecified Plan The patient is an elderly female with a prior history of major depressive disorder, PTSD and other traumatic experiences admitted for an overdose of medications in a possible suicidal attempt. According to the physician on on [facility], she admitted suicidal ideation but on interview she adamantly denies self-harming behavior. Plan 1. Gather collateral information. 2. Continue with antidepressants other medications. 3. Continue medical workout. 4. Fifteen minute checks. Reason for continued inpatient stay Substantial Risk for: inability to function, rapid decompensation and med/psych decompensation Time Spent With Patient Time: Total time managing care of this patient today __20__ minutes.
[2022-07-29] MEDS: Multivitamin TABLET 1 TAB PO (09:19)
[2022-07-29] MEDS: Gabapentin 400 MG CAPSULE PO ×3 (09:19→21:43)
[2022-07-29] MEDS: Omeprazole 20 MG CAPSULE.DR PO (09:19)
[2022-07-29] MEDS: metFORMIN HCl 500 MG TABLET PO ×2 (09:20→21:43)
[2022-07-29] MEDS: Lurasidone HCl 80 MG TABLET PO (09:20)
[2022-07-29] MEDS: Docusate Sodium 100 MG CAPSULE PO (09:20)
[2022-07-29] MEDS: QUEtiapine Fumarate 25 MG TABLET 75 MG PO ×2 (09:20→21:43)
[2022-07-29] MEDS: Topiramate 100 MG TABLET PO (09:20)
[2022-07-29] MEDS: Vilazodone HCL 40 MG TABLET PO (09:20)
[2022-07-29] MEDS: Cholecalciferol (Vitamin D3) 25 MCG TABLET 50 MCG PO (09:20)
[2022-07-29] MEDS: Cyanocobalamin (Vitamin B-12) 1,000 MCG TABLET 1000 MCG PO (09:20)
[2022-07-29] MEDS: Nicotine 14 MG PATCH.TD24 TRANSDERMA (10:18)
[2022-07-29] MEDS: Benzonatate 100 MG CAPSULE PO (14:30)
[2022-07-29 14:38] LABS: Glucose, Whole Blood 146 mg/dL (60-115)
[2022-07-29] MEDS: Montelukast Sodium 10 MG TABLET PO (21:43)
[2022-07-29] MEDS: Atorvastatin Calcium 10 MG TABLET PO (21:43)
[2022-07-29] MEDS: QUEtiapine Fumarate 200 MG TABLET PO (21:44)
[2022-07-29 22:28] VITALS: PULSE 76; RESP 18; O2SAT 95
[2022-07-29] MEDS: clonazePAM 0.5 MG TABLET PO (22:30)
[2022-07-30] MEDS: Omeprazole 20 MG CAPSULE.DR PO (06:05)
[2022-07-30] MEDS: Acetaminophen 325 MG TABLET 650 MG PO (06:10)
[2022-07-30] MEDS: clonazePAM 0.5 MG TABLET PO ×2 (06:11→21:45)
[2022-07-30 08:14] LABS: Glucose, Whole Blood 162 mg/dL (60-115)
[2022-07-30 09:30] VITALS: BP 111/59; PULSE 74; RESP 16; TEMP 35.8; O2SAT 97
[2022-07-30] MEDS: Vilazodone HCL 40 MG TABLET PO (10:11)
[2022-07-30] MEDS: Cyanocobalamin (Vitamin B-12) 1,000 MCG TABLET 1000 MCG PO (10:11)
[2022-07-30] MEDS: Lurasidone HCl 80 MG TABLET PO (10:11)
[2022-07-30] MEDS: Topiramate 100 MG TABLET PO (10:11)
[2022-07-30] MEDS: Docusate Sodium 100 MG CAPSULE PO (10:11)
[2022-07-30] MEDS: metFORMIN HCl 500 MG TABLET PO ×2 (10:11→20:20)
[2022-07-30] MEDS: Gabapentin 400 MG CAPSULE PO ×3 (10:11→20:20)
[2022-07-30] MEDS: Cholecalciferol (Vitamin D3) 25 MCG TABLET 50 MCG PO (10:12)
[2022-07-30] MEDS: Multivitamin TABLET 1 TAB PO (10:12)
[2022-07-30] MEDS: QUEtiapine Fumarate 25 MG TABLET 75 MG PO ×2 (10:12→20:20)
[2022-07-30] MEDS: Nicotine 14 MG PATCH.TD24 TRANSDERMA (10:13)
--- NOTE | 2022-07-30 13:40 | P.PNPSI_ITS ---
Subjective Subjective Date of Service: 07/30/22 Reason For Visit: TAVIA with Psychotic Features PTSD Subjective Notes: Conditional Voluntary Interim History: The nursing staff reported the patient has been compliant with treatment, they have noticed that she is coughing more in the evening. The health and social care teacher reported that we will have a family meeting tomorrow and be changed case managing is working in her case. On interview the patient denies new symptoms denies active suicidal ideation. Mental Status Exam Mental Status Exam Patient Appearance: Well Grooomed and Appropriate Patient Orientation: Person and Situation Level of Consciousness: Awake and Appropriate Patient Behavior: Guarded and Passive Mood Description: Withdrawn and Constricted Affect Description: Calm Ability to Follow Directions: Good Speech Pattern: Clear Hallucinations: None Delusions: Not Present Thought Process: Distracted and Linear Thought Content: positive for [place] and positive for Circumstantial Judgement: Fair Diagnostics Vital Signs (24Hr): Vital Signs - 24 hr 07/29/22 22:28 07/30/22 09:30 Temperature 96.4 F L Pulse Rate 76 74 Respiratory Rate 18 16 Blood Pressure 111/59 L Pulse Oximetry 97 Oxygen Delivery Method Room Air BMI result Body Mass Index 28.0 Labs 07/27/22 08:16 Labs: Laboratory Results - last 48 hr 07/29/22 07/30/22 14:33 08:05 POC Glucose 146 H 162 H Medications Medications Current Medications Acetaminophen (Acetaminophen 325 Mg Tablet) 650 mg PO Q6H PRN PRN Reason: Headache/Pain Mild Scale (1-3) Last Admin: 07/30/22 06:10 Dose: 650 mg Al Hydroxide/Mg Hydroxide (Magnesium Hydrox/Alum Hydrox 30 Ml Oral.Susp) 30 ml PO Q6H PRN PRN Reason: Heartburn/Nausea Last Admin: 07/27/22 21:13 Dose: 30 ml Albuterol Sulfate (Albuterol Sulfate 90 Mcg 8 Gm Inhaler) 2 puff INHALE Q4H PRN PRN Reason: Shortness of Breath/Wheezing Albuterol/Ipratropium (Albuterol/Iprat 2.5/0.5mg 3 Ml Ampul.Neb) 3 ml INHALE RQ6H WHILE AWAKE [facility] Last Admin: 07/30/22 10:04 Dose: Not Given Atorvastatin Calcium (Atorvastatin Calcium 10 Mg Tablet) 10 mg PO BEDTIME [facility] Last Admin: 07/29/22 21:43 Dose: 10 mg Benzonatate (Benzonatate 100 Mg Capsule) 100 mg PO TID PRN PRN Reason: coughing Last Admin: 07/29/22 14:30 Dose: 100 mg Clonazepam (Clonazepam 0.5 Mg Tablet) 0.5 mg PO TID PRN PRN Reason: Anxiety Last Admin: 07/30/22 06:11 Dose: 0.5 mg Cyanocobalamin (Cyanocobalamin (Vitamin B-12) 1,000 Mcg Tablet) 1,000 mcg PO DAILY [facility] Last Admin: 07/30/22 10:11 Dose: 1,000 mcg Docusate Sodium (Docusate Sodium 100 Mg Capsule) 100 mg PO DAILY [facility] Last Admin: 07/30/22 10:11 Dose: 100 mg Gabapentin (Gabapentin 400 Mg Capsule) 400 mg PO TID [facility] Last Admin: 07/30/22 10:11 Dose: 400 mg Hydroxyzine HCl (Hydroxyzine Hcl 25 Mg Tablet) 25 mg PO Q6H PRN PRN Reason: Anxiety Lurasidone HCl (Lurasidone Hcl 80 Mg Tablet) 80 mg PO DAILY [facility] Last Admin: 07/30/22 10:11 Dose: 80 mg Magnesium Hydroxide (Milk Of Magnesia 30 Ml Oral.Susp) 30 ml PO DAILY PRN PRN Reason: Constipation Metformin HCl (Metformin Hcl 500 Mg Tablet) 500 mg PO BID [facility] Last Admin: 07/30/22 10:11 Dose: 500 mg Montelukast Sodium (Montelukast Sodium 10 Mg Tablet) 10 mg PO BEDTIME [facility] Last Admin: 07/29/22 21:43 Dose: 10 mg Multivitamins/Vitamin C (Multivitamin Tablet) 1 tab PO DAILY [facility] Last Admin: 07/30/22 10:12 Dose: 1 tab Nicotine (Nicotine 14 Mg Patch.Td24) 14 mg TRANSDERMA DAILY [facility] Last Admin: 07/30/22 10:13 Dose: 14 mg Non-Formulary Medication (Linaclotide [Linzess]) 145 mcg PO DAILY@1900 [facility] Last Admin: 07/29/22 17:55 Dose: 145 mcg Omeprazole (Omeprazole 20 Mg Capsule.Dr) 20 mg PO DAILY@0630 [facility] Last Admin: 07/30/22 06:05 Dose: 20 mg Quetiapine Fumarate (Quetiapine Fumarate 25 Mg Tablet) 75 mg PO BID [facility] Last Admin: 07/30/22 10:12 Dose: 75 mg Quetiapine Fumarate (Quetiapine Fumarate 200 Mg Tablet) 200 mg PO BEDTIME [facility] Last Admin: 07/29/22 21:44 Dose: 200 mg Topiramate (Topiramate 100 Mg Tablet) 100 mg PO DAILY [facility] Last Admin: 07/30/22 10:11 Dose: 100 mg Trazodone HCl (Trazodone Hcl 50 Mg Tablet) 50 mg PO BEDTIME MRX1 PRN PRN Reason: Insomnia Last Admin: 07/29/22 22:30 Dose: 50 mg Vilazodone HCl (Vilazodone Hcl 40 Mg Tablet) 40 mg PO DAILY [facility] Last Admin: 07/30/22 10:11 Dose: 40 mg Vitamin D (Cholecalciferol (Vitamin D3) 25 Mcg Tablet) 50 mcg PO DAILY [facility] Last Admin: 07/30/22 10:12 Dose: 50 mcg Allergies Allergies Allergy/AdvReac Type Severity Reaction Status Date / Time bupropion [From WELLBUTRIN] Allergy Unknown ITCHING Unverified 07/15/20 14:14 morphine [MORPHINE] Allergy Unknown ITCHING Unverified 07/15/20 14:14 nicotine [From Nicoderm CQ] AdvReac Mild SKIN Unverified 07/15/20 14:14 IRRITATION Assessment & Plan Assessment & Plan (1) Major depressive disorder: Status: Acute Code(s): F32.9 - Major depressive disorder, single episode, unspecified Plan The patient is an elderly female with a prior history of major depressive disorder, PTSD and other traumatic experiences admitted for an overdose of medications in a possible suicidal attempt. According to the physician on on [facility], she admitted suicidal ideation but on interview she adamantly denies self-harming behavior. Plan 1. Gather collateral information. 2. Continue with antidepressants other medications. 3. Continue medical workout. 4. Fifteen minute checks. Reason for continued inpatient stay Substantial Risk for: inability to function, rapid decompensation and med/psych decompensation Time Spent With Patient Time: Total time managing care of this patient today __20__ minutes.
[2022-07-30] MEDS: Albuterol/Iprat 2.5/0.5MG 3 ML AMPUL.NEB INHALE ×2 (14:35→21:23)
[2022-07-30 14:36] VITALS: PULSE 77; RESP 15; O2SAT 99
[2022-07-30 20:11] VITALS: BP 120/54; PULSE 74; RESP 17; TEMP 36.3; O2SAT 92
[2022-07-30] MEDS: QUEtiapine Fumarate 200 MG TABLET PO (20:20)
[2022-07-30] MEDS: Atorvastatin Calcium 10 MG TABLET PO (20:20)
[2022-07-30] MEDS: Montelukast Sodium 10 MG TABLET PO (20:20)
[2022-07-30 21:23] VITALS: PULSE 78; RESP 17; O2SAT 95
[2022-07-30] MEDS: traZODone HCL 50 MG TABLET PO (21:45)
[2022-07-31] MEDS: Acetaminophen 325 MG TABLET 650 MG PO (02:35)
[2022-07-31] MEDS: Milk of Magnesia 30 ML ORAL.SUSP PO (02:37)
[2022-07-31] MEDS: Omeprazole 20 MG CAPSULE.DR PO (06:18)
[2022-07-31 07:30] VITALS: BP 117/56; PULSE 67; RESP 17; TEMP 36.3; O2SAT 94
[2022-07-31] MEDS: Vilazodone HCL 40 MG TABLET PO (08:56)
[2022-07-31] MEDS: Gabapentin 400 MG CAPSULE PO ×3 (08:56→20:10)
[2022-07-31] MEDS: QUEtiapine Fumarate 25 MG TABLET 75 MG PO ×2 (08:56→20:11)
[2022-07-31] MEDS: Cyanocobalamin (Vitamin B-12) 1,000 MCG TABLET 1000 MCG PO (08:56)
[2022-07-31] MEDS: metFORMIN HCl 500 MG TABLET PO ×2 (08:56→20:11)
[2022-07-31] MEDS: Cholecalciferol (Vitamin D3) 25 MCG TABLET 50 MCG PO (08:56)
[2022-07-31] MEDS: Multivitamin TABLET 1 TAB PO (08:56)
[2022-07-31] MEDS: Docusate Sodium 100 MG CAPSULE PO (08:56)
[2022-07-31] MEDS: Topiramate 100 MG TABLET PO (08:57)
[2022-07-31] MEDS: Lurasidone HCl 80 MG TABLET PO (08:57)
[2022-07-31] MEDS: Nicotine 14 MG PATCH.TD24 TRANSDERMA (11:54)
[2022-07-31] MEDS: Albuterol/Iprat 2.5/0.5MG 3 ML AMPUL.NEB INHALE (12:18)
[2022-07-31 12:20] VITALS: PULSE 76; RESP 16; O2SAT 99
[2022-07-31 13:13] LABS: Appearance Urine Clear; Color Urine Yellow; Glucose Urine UA Negative (Negative); Leukocyte Esterase Urine Negative (Negative); Nitrite Urine Negative (Negative); Specific Gravity - Urine <= 1.005 (1.005-1.025); Urine Blood Negative (Negative); Urine Ketones Negative (Negative); Urine Protein Negative (Neg-Trace)
[2022-07-31 13:18] LABS: Bacteria Urine None Seen (None Seen); Hyaline Casts Urine 0-2 /LPF (0-2); RBC Urine 0-2 /HPF (0-2); Squamous Epithelial Cell Urine 0-2 /HPF (0-2); WBC Urine 0-5 /HPF (0-5)
--- NOTE | 2022-07-31 13:52 | P.PNPSI_ITS ---
Subjective Subjective Date of Service: 07/31/22 Reason For Visit: TAVIA with Psychotic Features PTSD Subjective Notes: Conditional Voluntary Interim History: The nursing staff reported the patient had complained some anxiety and depression but she is able to contract for safety. The occupational therapist reported that she has been attending to groups, she scored 17/30 on the Branch test but it seems that she was trying to score lower. Today we have a family meeting with the treatment team and her daughter had unrealistic expectations but we came up with a good discharge planning. We are planning to discharge her at the end of the week if nothing new happens. On interview the patient denies new symptoms. Mental Status Exam Mental Status Exam Patient Appearance: Well Grooomed and Appropriate Patient Orientation: Person and Situation Level of Consciousness: Awake and Appropriate Patient Behavior: Guarded and Passive Mood Description: Calm Affect Description: Constricted Ability to Follow Directions: Good Speech Pattern: Clear Hallucinations: None Delusions: Not Present Thought Process: Distracted and Linear Thought Content: positive for [place] Judgement: Fair Diagnostics Vital Signs (24Hr): Vital Signs - 24 hr 07/30/22 14:36 07/30/22 20:11 07/30/22 21:23 Temperature 97.3 F Pulse Rate 77 74 78 Respiratory Rate 15 17 17 Blood Pressure 120/54 L Pulse Oximetry 92 Oxygen Delivery Method Room Air 07/31/22 07:30 07/31/22 12:20 Temperature 97.4 F Pulse Rate 67 76 Respiratory Rate 17 16 Blood Pressure 117/56 L Pulse Oximetry 94 Oxygen Delivery Method Room Air BMI result Body Mass Index 28.0 Labs 07/27/22 08:16 Labs: Laboratory Results - last 48 hr 07/29/22 07/30/22 07/31/22 14:33 08:05 06:15 POC Glucose 146 H 162 H Urine Color Yellow Urine Appearance Clear Urine pH 7.0 Ur Specific [place] <= 1.005 Urine Protein Negative Urine Glucose (UA) Negative Urine Ketones Negative Urine Blood Negative Urine Nitrite Negative Ur Leukocyte Esterase Negative Urine RBC 0-2 Urine WBC 0-5 Ur Squamous Epith Cells 0-2 Urine Bacteria None Seen Hyaline Casts 0-2 Medications Medications Current Medications Acetaminophen (Acetaminophen 325 Mg Tablet) 650 mg PO Q6H PRN PRN Reason: Headache/Pain Mild Scale (1-3) Last Admin: 07/31/22 02:35 Dose: 650 mg Al Hydroxide/Mg Hydroxide (Magnesium Hydrox/Alum Hydrox 30 Ml Oral.Susp) 30 ml PO Q6H PRN PRN Reason: Heartburn/Nausea Last Admin: 07/27/22 21:13 Dose: 30 ml Albuterol Sulfate (Albuterol Sulfate 90 Mcg 8 Gm Inhaler) 2 puff INHALE Q4H PRN PRN Reason: Shortness of Breath/Wheezing Albuterol/Ipratropium (Albuterol/Iprat 2.5/0.5mg 3 Ml Ampul.Neb) 3 ml INHALE RQ6H WHILE AWAKE [facility] Last Admin: 07/31/22 12:18 Dose: 3 ml Atorvastatin Calcium (Atorvastatin Calcium 10 Mg Tablet) 10 mg PO BEDTIME [facility] Last Admin: 07/30/22 20:20 Dose: 10 mg Benzonatate (Benzonatate 100 Mg Capsule) 100 mg PO TID PRN PRN Reason: coughing Last Admin: 07/29/22 14:30 Dose: 100 mg Clonazepam (Clonazepam 0.5 Mg Tablet) 0.5 mg PO TID PRN PRN Reason: Anxiety Last Admin: 07/30/22 21:45 Dose: 0.5 mg Cyanocobalamin (Cyanocobalamin (Vitamin B-12) 1,000 Mcg Tablet) 1,000 mcg PO DAILY [facility] Last Admin: 07/31/22 08:56 Dose: 1,000 mcg Docusate Sodium (Docusate Sodium 100 Mg Capsule) 100 mg PO DAILY [facility] Last Admin: 07/31/22 08:56 Dose: 100 mg Gabapentin (Gabapentin 400 Mg Capsule) 400 mg PO TID [facility] Last Admin: 07/31/22 08:56 Dose: 400 mg Hydroxyzine HCl (Hydroxyzine Hcl 25 Mg Tablet) 25 mg PO Q6H PRN PRN Reason: Anxiety Lurasidone HCl (Lurasidone Hcl 80 Mg Tablet) 80 mg PO DAILY [facility] Last Admin: 07/31/22 08:57 Dose: 80 mg Magnesium Hydroxide (Milk Of Magnesia 30 Ml Oral.Susp) 30 ml PO DAILY PRN PRN Reason: Constipation Last Admin: 07/31/22 02:37 Dose: 30 ml Metformin HCl (Metformin Hcl 500 Mg Tablet) 500 mg PO BID [facility] Last Admin: 07/31/22 08:56 Dose: 500 mg Montelukast Sodium (Montelukast Sodium 10 Mg Tablet) 10 mg PO BEDTIME [facility] Last Admin: 07/30/22 20:20 Dose: 10 mg Multivitamins/Vitamin C (Multivitamin Tablet) 1 tab PO DAILY [facility] Last Admin: 07/31/22 08:56 Dose: 1 tab Nicotine (Nicotine 14 Mg Patch.Td24) 14 mg TRANSDERMA DAILY [facility] Last Admin: 07/31/22 11:54 Dose: 14 mg Non-Formulary Medication (Linaclotide [Linzess]) 145 mcg PO DAILY@1900 [facility] Last Admin: 07/30/22 20:19 Dose: 145 mcg Omeprazole (Omeprazole 20 Mg Capsule.Dr) 20 mg PO DAILY@0630 [facility] Last Admin: 07/31/22 06:18 Dose: 20 mg Quetiapine Fumarate (Quetiapine Fumarate 25 Mg Tablet) 75 mg PO BID [facility] Last Admin: 07/31/22 08:56 Dose: 75 mg Quetiapine Fumarate (Quetiapine Fumarate 200 Mg Tablet) 200 mg PO BEDTIME [facility] Last Admin: 07/30/22 20:20 Dose: 200 mg Topiramate (Topiramate 100 Mg Tablet) 100 mg PO DAILY [facility] Last Admin: 07/31/22 08:57 Dose: 100 mg Trazodone HCl (Trazodone Hcl 50 Mg Tablet) 50 mg PO BEDTIME MRX1 PRN PRN Reason: Insomnia Last Admin: 07/30/22 21:45 Dose: 50 mg Vilazodone HCl (Vilazodone Hcl 40 Mg Tablet) 40 mg PO DAILY [facility] Last Admin: 07/31/22 08:56 Dose: 40 mg Vitamin D (Cholecalciferol (Vitamin D3) 25 Mcg Tablet) 50 mcg PO DAILY [facility] Last Admin: 07/31/22 08:56 Dose: 50 mcg Allergies Allergies Allergy/AdvReac Type Severity Reaction Status Date / Time bupropion [From WELLBUTRIN] Allergy Unknown ITCHING Unverified 07/15/20 14:14 morphine [MORPHINE] Allergy Unknown ITCHING Unverified 07/15/20 14:14 nicotine [From Nicoderm CQ] AdvReac Mild SKIN Unverified 07/15/20 14:14 IRRITATION Assessment & Plan Assessment & Plan (1) Bipolar 1 disorder, depressed: Status: Acute Code(s): F31.9 - Bipolar disorder, unspecified Plan The patient is an elderly female with a prior history of major depres sive disorder, PTSD and other traumatic experiences admitted for an overdose of medications in a possible suicidal attempt. According to the physician on on [facility], she admitted suicidal ideation but on interview she adamantly denies self-harming behavior. Plan 1. Gather collateral information. 2. Continue with antidepressants other medications. 3. Continue medical workout. 4. Fifteen minute checks. Reason for continued inpatient stay Substantial Risk for: inability to function, rapid decompensation and med/psych decompensation Time Spent With Patient Time: Total time managing care of this patient today __20__ minutes.
[2022-07-31] MEDS: clonazePAM 0.5 MG TABLET PO ×2 (15:06→22:52)
[2022-07-31 18:00] VITALS: BP 110/55; PULSE 71; RESP 18; TEMP 37.1; O2SAT 92
[2022-07-31] MEDS: Atorvastatin Calcium 10 MG TABLET PO (20:10)
[2022-07-31] MEDS: Montelukast Sodium 10 MG TABLET PO (20:11)
[2022-07-31] MEDS: QUEtiapine Fumarate 200 MG TABLET PO (20:11)
[2022-07-31] MEDS: traZODone HCL 50 MG TABLET PO (21:11)
[2022-08-01] MEDS: hydrOXYzine HCL 25 MG TABLET PO (03:41)
[2022-08-01] MEDS: Omeprazole 20 MG CAPSULE.DR PO (06:18)
[2022-08-01 07:30] VITALS: BP 128/60; PULSE 65; RESP 16; TEMP 36.2; O2SAT 96
[2022-08-01] MEDS: QUEtiapine Fumarate 25 MG TABLET 75 MG PO ×2 (08:48→20:57)
[2022-08-01] MEDS: Cholecalciferol (Vitamin D3) 25 MCG TABLET 50 MCG PO (08:49)
[2022-08-01] MEDS: Multivitamin TABLET 1 TAB PO (08:49)
[2022-08-01] MEDS: Vilazodone HCL 40 MG TABLET PO (08:49)
[2022-08-01] MEDS: Docusate Sodium 100 MG CAPSULE PO (08:49)
[2022-08-01] MEDS: metFORMIN HCl 500 MG TABLET PO ×2 (08:49→20:57)
[2022-08-01] MEDS: Gabapentin 400 MG CAPSULE PO ×3 (08:49→20:57)
[2022-08-01] MEDS: Topiramate 100 MG TABLET PO (08:49)
[2022-08-01] MEDS: Cyanocobalamin (Vitamin B-12) 1,000 MCG TABLET 1000 MCG PO (08:49)
[2022-08-01] MEDS: Lurasidone HCl 80 MG TABLET PO (08:50)
[2022-08-01] MEDS: Nicotine 14 MG PATCH.TD24 TRANSDERMA (08:53)
--- NOTE | 2022-08-01 08:58 | P.PNPSI_ITS ---
Subjective Subjective Date of Service: 08/01/22 Reason For Visit: TAVIA with Psychotic Features PTSD Subjective Notes: Conditional Voluntary Interim History: pt denies si states she feels better about d/c Mental Status Exam Mental Status Exam Patient Appearance: Well Grooomed and Appropriate Patient Orientation: Person, Place and Situation Level of Consciousness: Awake and Appropriate Patient Behavior: Guarded and Passive Mood Description: Calm Affect Description: Constricted Ability to Follow Directions: Good Speech Pattern: Clear Hallucinations: None Delusions: Not Present Thought Process: Distracted and Linear Thought Content: positive for [place] Judgement: Fair Diagnostics Vital Signs (24Hr): Vital Signs - 24 hr 07/31/22 12:20 07/31/22 18:00 Temperature 98.8 F Pulse Rate 76 71 Respiratory Rate 16 18 Blood Pressure 110/55 L Pulse Oximetry 92 Oxygen Delivery Method Room Air BMI result Body Mass Index 28.0 Labs 07/27/22 08:16 Labs: Laboratory Results - last 48 hr 07/31/22 06:15 Urine Color Yellow Urine Appearance Clear Urine pH 7.0 Ur Specific [place] <= 1.005 Urine Protein Negative Urine Glucose (UA) Negative Urine Ketones Negative Urine Blood Negative Urine Nitrite Negative Ur Leukocyte Esterase Negative Urine RBC 0-2 Urine WBC 0-5 Ur Squamous Epith Cells 0-2 Urine Bacteria None Seen Hyaline Casts 0-2 Medications Medications Current Medications Acetaminophen (Acetaminophen 325 Mg Tablet) 650 mg PO Q6H PRN PRN Reason: Headache/Pain Mild Scale (1-3) Last Admin: 07/31/22 02:35 Dose: 650 mg Al Hydroxide/Mg Hydroxide (Magnesium Hydrox/Alum Hydrox 30 Ml Oral.Susp) 30 ml PO Q6H PRN PRN Reason: Heartburn/Nausea Last Admin: 07/27/22 21:13 Dose: 30 ml Albuterol Sulfate (Albuterol Sulfate 90 Mcg 8 Gm Inhaler) 2 puff INHALE Q4H PRN PRN Reason: Shortness of Breath/Wheezing Albuterol/Ipratropium (Albuterol/Iprat 2.5/0.5mg 3 Ml Ampul.Neb) 3 ml INHALE RQ6H WHILE AWAKE [facility] Last Admin: 07/31/22 20:20 Dose: Not Given Atorvastatin Calcium (Atorvastatin Calcium 10 Mg Tablet) 10 mg PO BEDTIME [facility] Last Admin: 07/31/22 20:10 Dose: 10 mg Benzonatate (Benzonatate 100 Mg Capsule) 100 mg PO TID PRN PRN Reason: coughing Last Admin: 07/29/22 14:30 Dose: 100 mg Clonazepam (Clonazepam 0.5 Mg Tablet) 0.5 mg PO TID PRN PRN Reason: Anxiety Last Admin: 07/31/22 22:52 Dose: 0.5 mg Cyanocobalamin (Cyanocobalamin (Vitamin B-12) 1,000 Mcg Tablet) 1,000 mcg PO DAILY [facility] Last Admin: 08/01/22 08:49 Dose: 1,000 mcg Docusate Sodium (Docusate Sodium 100 Mg Capsule) 100 mg PO DAILY [facility] Last Admin: 08/01/22 08:49 Dose: 100 mg Gabapentin (Gabapentin 400 Mg Capsule) 400 mg PO TID [facility] Last Admin: 08/01/22 08:49 Dose: 400 mg Hydroxyzine HCl (Hydroxyzine Hcl 25 Mg Tablet) 25 mg PO Q6H PRN PRN Reason: Anxiety Last Admin: 08/01/22 03:41 Dose: 25 mg Lurasidone HCl (Lurasidone Hcl 80 Mg Tablet) 80 mg PO DAILY [facility] Last Admin: 08/01/22 08:50 Dose: 80 mg Magnesium Hydroxide (Milk Of Magnesia 30 Ml Oral.Susp) 30 ml PO DAILY PRN PRN Reason: Constipation Last Admin: 07/31/22 02:37 Dose: 30 ml Metformin HCl (Metformin Hcl 500 Mg Tablet) 500 mg PO BID [facility] Last Admin: 08/01/22 08:49 Dose: 500 mg Montelukast Sodium (Montelukast Sodium 10 Mg Tablet) 10 mg PO BEDTIME [facility] Last Admin: 07/31/22 20:11 Dose: 10 mg Multivitamins/Vitamin C (Multivitamin Tablet) 1 tab PO DAILY [facility] Last Admin: 08/01/22 08:49 Dose: 1 tab Nicotine (Nicotine 14 Mg Patch.Td24) 14 mg TRANSDERMA DAILY [facility] Last Admin: 08/01/22 08:53 Dose: 14 mg Non-Formulary Medication (Linaclotide [Linzess]) 145 mcg PO DAILY@1900 [facility] Last Admin: 07/31/22 18:20 Dose: 145 mcg Omeprazole (Omeprazole 20 Mg Capsule.Dr) 20 mg PO DAILY@0630 [facility] Last Admin: 08/01/22 06:18 Dose: 20 mg Quetiapine Fumarate (Quetiapine Fumarate 25 Mg Tablet) 75 mg PO BID [facility] Last Admin: 08/01/22 08:48 Dose: 75 mg Quetiapine Fumarate (Quetiapine Fumarate 200 Mg Tablet) 200 mg PO BEDTIME [facility] Last Admin: 07/31/22 20:11 Dose: 200 mg Topiramate (Topiramate 100 Mg Tablet) 100 mg PO DAILY [facility] Last Admin: 08/01/22 08:49 Dose: 100 mg Trazodone HCl (Trazodone Hcl 50 Mg Tablet) 50 mg PO BEDTIME MRX1 PRN PRN Reason: Insomnia Last Admin: 07/31/22 21:11 Dose: 50 mg Vilazodone HCl (Vilazodone Hcl 40 Mg Tablet) 40 mg PO DAILY [facility] Last Admin: 08/01/22 08:49 Dose: 40 mg Vitamin D (Cholecalciferol (Vitamin D3) 25 Mcg Tablet) 50 mcg PO DAILY [facility] Last Admin: 08/01/22 08:49 Dose: 50 mcg Allergies Allergies Allergy/AdvReac Type Severity Reaction Status Date / Time bupropion [From WELLBUTRIN] Allergy Unknown ITCHING Unverified 07/15/20 14:14 morphine [MORPHINE] Allergy Unknown ITCHING Unverified 07/15/20 14:14 nicotine [From Nicoderm CQ] AdvReac Mild SKIN Unverified 07/15/20 14:14 IRRITATION Assessment & Plan Assessment & Plan (1) Bipolar 1 disorder, depressed: Status: Acute Code(s): F31.9 - Bipolar disorder, unspecified Plan The patient is an elderly female with a prior history of major depressive disorder, PTSD and other traumatic experiences admitted for an overdose of medications in a possible suicidal attempt. According to the physician on on [facility], she admitted suicidal ideation but on interview she adamantly denies self-harming behavior. Plan 1. Gather collateral information. 2. Continue with antidepressants other medications. 3. Continue medical workout. 4. Fifteen minute checks. 08/01/22 pt doing better states safe future oriented Reason for continued inpatient stay Substantial Risk for: harm to self and rapid decompensation Time Spent With Patient Time: Total time managing care of this patient today ____ minutes.
[2022-08-01 09:56] VITALS: PULSE 78; RESP 18; O2SAT 98
[2022-08-01] MEDS: Albuterol/Iprat 2.5/0.5MG 3 ML AMPUL.NEB INHALE ×2 (09:56→20:27)
[2022-08-01 18:00] VITALS: BP 130/60; PULSE 73; RESP 18; TEMP 36; O2SAT 97
[2022-08-01 20:28] VITALS: PULSE 78; RESP 18; O2SAT 96
[2022-08-01] MEDS: Montelukast Sodium 10 MG TABLET PO (20:57)
[2022-08-01] MEDS: Atorvastatin Calcium 10 MG TABLET PO (20:57)
[2022-08-01] MEDS: QUEtiapine Fumarate 200 MG TABLET PO (20:57)
[2022-08-02] MEDS: Benzonatate 100 MG CAPSULE PO (01:41)
[2022-08-02] MEDS: traZODone HCL 50 MG TABLET PO ×2 (01:41→20:10)
[2022-08-02] MEDS: Omeprazole 20 MG CAPSULE.DR PO (05:30)
[2022-08-02 08:30] VITALS: BP 131/60; PULSE 70; RESP 18; TEMP 36.1; O2SAT 97
[2022-08-02] MEDS: QUEtiapine Fumarate 25 MG TABLET 75 MG PO ×2 (09:04→20:04)
[2022-08-02] MEDS: Docusate Sodium 100 MG CAPSULE PO (09:04)
[2022-08-02] MEDS: metFORMIN HCl 500 MG TABLET PO ×2 (09:05→20:05)
[2022-08-02] MEDS: Cholecalciferol (Vitamin D3) 25 MCG TABLET 50 MCG PO (09:05)
[2022-08-02] MEDS: Cyanocobalamin (Vitamin B-12) 1,000 MCG TABLET 1000 MCG PO (09:06)
[2022-08-02] MEDS: Topiramate 100 MG TABLET PO (09:06)
[2022-08-02] MEDS: Multivitamin TABLET 1 TAB PO (09:06)
[2022-08-02] MEDS: Vilazodone HCL 40 MG TABLET PO (09:07)
[2022-08-02] MEDS: Nicotine 14 MG PATCH.TD24 TRANSDERMA (09:07)
[2022-08-02] MEDS: Lurasidone HCl 80 MG TABLET PO (09:07)
[2022-08-02] MEDS: Gabapentin 400 MG CAPSULE PO ×3 (09:07→20:04)
[2022-08-02 11:34] LABS: Glucose, Whole Blood 124 mg/dL (60-115)
[2022-08-02 12:17] VITALS: PULSE 78; RESP 18; O2SAT 96
[2022-08-02] MEDS: Albuterol/Iprat 2.5/0.5MG 3 ML AMPUL.NEB INHALE (12:17)
--- NOTE | 2022-08-02 13:02 | P.PNPSI_ITS ---
Subjective Subjective Date of Service: 08/02/22 Reason For Visit: TAVIA with Psychotic Features PTSD Subjective Notes: Conditional Voluntary Interim History: The nursing staff reported the patient has been quiet, pleasant anxious because she is going back home. The social worker clinical reported that the patient verbalized and suicidal thoughts last Saturday but overall she has been safe. She is going to be discharged to her daughter in the meantime. On interview the patient denies new symptoms, safe at this moment. Mental Status Exam Mental Status Exam Patient Appearance: Well Grooomed and Appropriate Patient Orientation: Person and Situation Level of Consciousness: Awake and Appropriate Patient Behavior: Guarded and Passive Mood Description: Calm Affect Description: Constricted Patient Cognition Impaired: Yes Ability to Follow Directions: Good Speech Pattern: Clear and Appropriate Hallucinations: None Delusions: Not Present Thought Process: Linear Thought Content: positive for [place] Judgement: Fair Diagnostics Vital Signs (24Hr): Vital Signs - 24 hr 08/01/22 20:28 08/01/22 18:00 08/02/22 12:17 Temperature 96.8 F Pulse Rate 78 73 78 Respiratory Rate 18 18 18 Blood Pressure 130/60 Pulse Oximetry 97 Oxygen Delivery Method Room Air BMI result Body Mass Index 28.0 Labs 07/27/22 08:16 Labs: Laboratory Results - last 48 hr 07/31/22 08/02/22 06:15 11:29 POC Glucose 124 H Urine Color Yellow Urine Appearance Clear Urine pH 7.0 Ur Specific [place] <= 1.005 Urine Protein Negative Urine Glucose (UA) Negative Urine Ketones Negative Urine Blood Negative Urine Nitrite Negative Ur Leukocyte Esterase Negative Urine RBC 0-2 Urine WBC 0-5 Ur Squamous Epith Cells 0-2 Urine Bacteria None Seen Hyaline Casts 0-2 Medications Medications Current Medications Acetaminophen (Acetaminophen 325 Mg Tablet) 650 mg PO Q6H PRN PRN Reason: Headache/Pain Mild Scale (1-3) Last Admin: 07/31/22 02:35 Dose: 650 mg Al Hydroxide/Mg Hydroxide (Magnesium Hydrox/Alum Hydrox 30 Ml Oral.Susp) 30 ml PO Q6H PRN PRN Reason: Heartburn/Nausea Last Admin: 07/27/22 21:13 Dose: 30 ml Albuterol Sulfate (Albuterol Sulfate 90 Mcg 8 Gm Inhaler) 2 puff INHALE Q4H PRN PRN Reason: Shortness of Breath/Wheezing Albuterol/Ipratropium (Albuterol/Iprat 2.5/0.5mg 3 Ml Ampul.Neb) 3 ml INHALE RQ6H WHILE AWAKE [facility] Last Admin: 08/02/22 12:17 Dose: 3 ml Atorvastatin Calcium (Atorvastatin Calcium 10 Mg Tablet) 10 mg PO BEDTIME [facility] Last Admin: 08/01/22 20:57 Dose: 10 mg Benzonatate (Benzonatate 100 Mg Capsule) 100 mg PO TID PRN PRN Reason: coughing Last Admin: 08/02/22 01:41 Dose: 100 mg Clonazepam (Clonazepam 0.5 Mg Tablet) 0.5 mg PO TID PRN PRN Reason: Anxiety Last Admin: 07/31/22 22:52 Dose: 0.5 mg Cyanocobalamin (Cyanocobalamin (Vitamin B-12) 1,000 Mcg Tablet) 1,000 mcg PO DAILY [facility] Last Admin: 08/02/22 09:06 Dose: 1,000 mcg Docusate Sodium (Docusate Sodium 100 Mg Capsule) 100 mg PO DAILY [facility] Last Admin: 08/02/22 09:04 Dose: 100 mg Gabapentin (Gabapentin 400 Mg Capsule) 400 mg PO TID [facility] Last Admin: 08/02/22 09:07 Dose: 400 mg Hydroxyzine HCl (Hydroxyzine Hcl 25 Mg Tablet) 25 mg PO Q6H PRN PRN Reason: Anxiety Last Admin: 08/01/22 03:41 Dose: 25 mg Lurasidone HCl (Lurasidone Hcl 80 Mg Tablet) 80 mg PO DAILY [facility] Last Admin: 08/02/22 09:07 Dose: 80 mg Magnesium Hydroxide (Milk Of Magnesia 30 Ml Oral.Susp) 30 ml PO DAILY PRN PRN Reason: Constipation Last Admin: 07/31/22 02:37 Dose: 30 ml Metformin HCl (Metformin Hcl 500 Mg Tablet) 500 mg PO BID [facility] Last Admin: 08/02/22 09:05 Dose: 500 mg Montelukast Sodium (Montelukast Sodium 10 Mg Tablet) 10 mg PO BEDTIME [facility] Last Admin: 08/01/22 20:57 Dose: 10 mg Multivitamins/Vitamin C (Multivitamin Tablet) 1 tab PO DAILY [facility] Last Admin: 08/02/22 09:06 Dose: 1 tab Nicotine (Nicotine 14 Mg Patch.Td24) 14 mg TRANSDERMA DAILY [facility] Last Admin: 08/02/22 09:07 Dose: 14 mg Non-Formulary Medication (Linaclotide [Linzess]) 145 mcg PO DAILY@1900 [facility] Last Admin: 08/01/22 18:42 Dose: 145 mcg Omeprazole (Omeprazole 20 Mg Capsule.Dr) 20 mg PO DAILY@0630 [facility] Last Admin: 08/02/22 05:30 Dose: 20 mg Quetiapine Fumarate (Quetiapine Fumarate 25 Mg Tablet) 75 mg PO BID [facility] Last Admin: 08/02/22 09:04 Dose: 75 mg Quetiapine Fumarate (Quetiapine Fumarate 200 Mg Tablet) 200 mg PO BEDTIME [facility] Last Admin: 08/01/22 20:57 Dose: 200 mg Topiramate (Topiramate 100 Mg Tablet) 100 mg PO DAILY [facility] Last Admin: 08/02/22 09:06 Dose: 100 mg Trazodone HCl (Trazodone Hcl 50 Mg Tablet) 50 mg PO BEDTIME MRX1 PRN PRN Reason: Insomnia Last Admin: 08/02/22 01:41 Dose: 50 mg Vilazodone HCl (Vilazodone Hcl 40 Mg Tablet) 40 mg PO DAILY [facility] Last Admin: 08/02/22 09:07 Dose: 40 mg Vitamin D (Cholecalciferol (Vitamin D3) 25 Mcg Tablet) 50 mcg PO DAILY [facility] Last Admin: 08/02/22 09:05 Dose: 50 mcg Allergies Allergies Allergy/AdvReac Type Severity Reaction Status Date / Time bupropion [From WELLBUTRIN] Allergy Unknown ITCHING Unverified 07/15/20 14:14 morphine [MORPHINE] Allergy Unknown ITCHING Unverified 07/15/20 14:14 nicotine [From Nicoderm CQ] AdvReac Mild SKIN Unverified 07/15/20 14:14 IRRITATION Assessment & Plan Assessment & Plan (1) Bipolar 1 disorder, depressed: Status: Acute Code(s): F31.9 - Bipolar disorder, unspecified Plan The patient is an elderly female with a prior history of major depressive disorder, PTSD and other traumatic experiences admitted for an overdose of medications in a possible suicidal attempt. According to the physician on on [facility], she admitted suicidal ideation but on interview she adamantly denies self-harming behavior. Plan 1. Gather collateral information. 2. Continue with antidepressants other medications. 3. Continue medical workout. 4. Fifteen minute checks. 5. Discharge tomorrow Reason for continued inpatient stay Substantial Risk for: inability to function, rapid decompensation and med/psych decompensation Time Spent With Patient Time: Total time managing care of this patient today __20__ minutes.
[2022-08-02] MEDS: clonazePAM 0.5 MG TABLET PO ×2 (13:08→22:24)
[2022-08-02 13:12] VITALS: BMI 29.5
[2022-08-02 18:00] VITALS: BP 127/60; PULSE 64; RESP 18; TEMP 36.1; O2SAT 96
[2022-08-02] MEDS: Atorvastatin Calcium 10 MG TABLET PO (20:05)
[2022-08-02] MEDS: Montelukast Sodium 10 MG TABLET PO (20:05)
[2022-08-02] MEDS: QUEtiapine Fumarate 200 MG TABLET PO (20:05)
[2022-08-03] MEDS: Omeprazole 20 MG CAPSULE.DR PO (05:21)
[2022-08-03 07:44] LABS: Glucose, Whole Blood 124 mg/dL (60-115)
[2022-08-03 08:00] VITALS: BP 136/65; PULSE 83; RESP 14; TEMP 35.1; O2SAT 100
[2022-08-03] MEDS: Multivitamin TABLET 1 TAB PO (08:05)
[2022-08-03] MEDS: Lurasidone HCl 80 MG TABLET PO (08:05)
[2022-08-03] MEDS: Cyanocobalamin (Vitamin B-12) 1,000 MCG TABLET 1000 MCG PO (08:05)
[2022-08-03] MEDS: Gabapentin 400 MG CAPSULE PO (08:06)
[2022-08-03] MEDS: metFORMIN HCl 500 MG TABLET PO (08:06)
[2022-08-03] MEDS: Vilazodone HCL 40 MG TABLET PO (08:06)
[2022-08-03] MEDS: Topiramate 100 MG TABLET PO (08:07)
[2022-08-03] MEDS: Docusate Sodium 100 MG CAPSULE PO (08:07)
[2022-08-03] MEDS: Cholecalciferol (Vitamin D3) 25 MCG TABLET 50 MCG PO (08:07)
[2022-08-03] MEDS: QUEtiapine Fumarate 25 MG TABLET 75 MG PO (08:08)
[2022-08-03] MEDS: Nicotine 14 MG PATCH.TD24 TRANSDERMA (08:15)
--- NOTE | 2022-08-03 08:23 | PM.PSYDC ---
DS: Providers Provider Date of Service: 08/03/22 Date of admission: 07/26/22 11:25 Date of discharge: 08/03/22 Primary care physician: Андрей Beth MD Consults: 07/25/22 16:04 Consult to Hospitalist Routine Comment: Consulting Provider: Hospitalist Reason For Exam: s/p od diabetic needs adm physical DS: Diagnosis Discharge Diagnosis (1) Bipolar 1 disorder, depressed: Status: Acute DS: Medications Discharge Medications Home Medications: Home Medications Medication Instructions Recorded Confirmed azithromycin 500 tab PO DAILY 07/25/22 07/25/22 clonazepam 0.5 mg tablet 0.5 mg PO TID PRN Anxiety 07/25/22 07/25/22 enoxaparin 40 mg/0.4 mL 40 mg subcut DAILY 07/25/22 07/25/22 subcutaneous syringe (Lovenox) gabapentin 300 mg capsule 400 mg PO TID 07/25/22 07/25/22 vitamin B complex (Vitamins B 1 tab PO DAILY 07/25/22 07/25/22 Complex tablet) Previous Rx's Medication Instructions Recorded acetaminophen 325 mg tablet 650 mg PO Q6H PRN Headache/Pain 08/02/22 Mild Scale (1-3) 7 days #14 tabs albuterol sulfate 90 mcg/actuation 90 mcg inhalation 4-6XD #6.7 grams 08/02/22 aerosol inhaler (Ventolin HFA) atorvastatin 10 mg tablet 10 mg PO DAILY 7 days #7 tabs 08/02/22 benzonatate 100 mg capsule 100 mg PO TID 7 days #21 caps 08/02/22 cholecalciferol (vitamin D3) 2,000 units PO DAILY 7 days #7 tabs 08/02/22 cyanocobalamin (vitamin B-12) See Rx Instructions .Route 08/02/22 1,000 mcg tablet .COMPLEX 7 days #7 tabs docusate sodium 100 mg capsule 100 mg PO DAILY 7 days #7 caps 08/02/22 gabapentin 400 mg capsule 400 mg PO TID 7 days #21 caps 08/02/22 hydroxyzine HCl 25 mg tablet 25 mg PO Q6H PRN Anxiety 7 days 08/02/22 #14 tabs ipratropium 0.5 mg-albuterol 3 mg 3 ml inhalation RQ6H WHILE AWAKE 08/02/22 (2.5 mg base)/3 mL nebulization 30 days #1 mL soln linaclotide 145 mcg capsule 145 mcg PO DAILY #7 caps 08/02/22 (Linzess) lurasidone 80 mg tablet 80 mg PO DAILY 7 days #7 tabs 08/02/22 metformin 500 mg tablet 500 mg PO BID 7 days #14 tabs 08/02/22 montelukast 10 mg tablet 10 mg PO DAILY 7 days #7 tabs 08/02/22 multivitamin (Daily-Juventino tablet) 1 tab PO DAILY 7 days #7 tabs 08/02/22 nicotine 14 mg/24 hr daily 1 patch topical DAILY 7 days #7 ea 08/02/22 transdermal patch omeprazole 20 mg capsule,delayed 20 mg PO DAILY 7 days #7 caps 08/02/22 release quetiapine 200 mg tablet 200 mg PO BEDTIME 7 days #7 tabs 08/02/22 quetiapine 50 mg tablet 75 mg PO BID 7 days #21 tabs 08/02/22 topiramate 100 mg tablet 100 mg PO DAILY 7 days #7 tabs 08/02/22 trazodone 50 mg tablet 50 mg PO BEDTIME MRX1 PRN Insomnia 08/02/22 7 days #14 tabs vilazodone 40 mg tablet (Viibryd) 40 mg PO DAILY 7 days #7 tabs 08/02/22 Mental Status Exam Mental Status Exam Patient Appearance: Well Grooomed and Appropriate Patient Orientation: Person and Situation Level of Consciousness: Awake and Appropriate Patient Behavior: Cooperative and Passive Mood Description: Withdrawn Affect Description: Constricted Patient Cognition Impaired: Yes Ability to Follow Directions: Good Speech Pattern: Clear Hallucinations: None Delusions: Not Present Thought Process: Linear Thought Content: positive for [place] and positive for Circumstantial Judgement: Fair Data Data Completed and Pending Completed studies during hospitalization [Text1]: 07/27/22 07/28/22 07/29/22 08:16 11:09 14:33 Sodium 142 Potassium 4.3 Chloride 109 H Carbon Dioxide 23 Anion Gap 14 BUN 20 H Creatinine 1.48 H Estim Creat Clear Calc 40.6 Estimated GFR 36 POC Glucose 168 H 146 H Random Glucose 150 H Calcium 9.5 Urine Color Urine Appearance Urine pH Ur Specific Trinity Urine Protein Urine Glucose (UA) Urine Ketones Urine Blood Urine Nitrite Ur Leukocyte Esterase Urine RBC Urine WBC Ur Squamous Epith Cells Urine Bacteria Hyaline Casts 0407/31/22 08/02/22 08:05 06:15 11:29 Sodium Potassium Chloride Carbon Dioxide Anion Gap BUN Creatinine Estim Creat Clear Calc Estimated GFR POC Glucose 162 H 124 H Random Glucose Calcium Urine Color Yellow Urine Appearance Clear Urine pH 7.0 Ur Specific Trinity <= 1.005 Urine Protein Negative Urine Glucose (UA) Negative Urine Ketones Negative Urine Blood Negative Urine Nitrite Negative Ur Leukocyte Esterase Negative Urine RBC 0-2 Urine WBC 0-5 Ur Squamous Epith Cells 0-2 Urine Bacteria None Seen Hyaline Casts 0-2 08/03/22 07:40 Sodium Potassium Chloride Carbon Dioxide Anion Gap BUN Creatinine Estim Creat Clear Calc Estimated GFR POC Glucose 124 H Random Glucose Calcium Urine Color Urine Appearance Urine pH Ur Specific Trinity Urine Protein Urine Glucose (UA) Urine Ketones Urine Blood Urine Nitrite Ur Leukocyte Esterase Urine RBC Urine WBC Ur Squamous Epith Cells Urine Bacteria Hyaline Casts DS: Summary Hospital Course Hospital Course: The patient was initially admitted at the emergency room of another hospital since she was found by her daughter sedated, most likely overdosed on [id number] medication. She was initially admitted medically, and after being medically cleared transferring to this facility for suicidal ideation. Please see the HPI of the admission note for further details. On admission, the patient adamantly denied suicidal ideation, she reports dysphoria but it is chronic. We review her list of medications and she had mood stabilizers with a typical antipsychotics. The patient carries a diagnosis of bipolar disorder. She had been followed closely by providers in the community. We did a medical workout, and also we continue her regular medications. While she was in the unit, the patient was able to participate in groups, she was future oriented and there was no evidence of suicidal ideation. We had several family meetings regarding a safe discharge plan since the patient has already tried to overdose before. Case managing and addition of ancillary services were done. Since the patient did not have any safety concerns discharge planning was discussed. Time spent discussing smoking cessation with patient: 3 to 10 minutes Status at Discharge Cognitive/behavioral status at discharge: At baseline Functional status at discharge: independent ambulation Overall status at discharge: patient is back to baseline Time Spent with Patient Time attestation: Total time managing care of this patient today __30__ minutes. Time spent: Less than 30 minutes Discharge Plan Discharge Anticipated Discharge Date/Time: 08/03/22 10:00 Patient Disposition: Home, Self-Care Discharge Diagnosis: Bipolar disorder most recent episode depressed without psychotic features Referrals: Clinical and Support Options: Dr Bayron Riddle [Other] - 08/21/22 11:30 am (Your next psychiatry appointment is scheduled for 08/21/[address] Riddle) Clinical and Support Options: Marisol Dillon [Other] - 08/16/22 12:00 pm (Your next appointment with Olya Jordan is on 08/16/22 at 12pm. ) [facility] home health care case manager Kiersten Lancaster [Other] - 08/03/22 (Your CP Rebecca will be following up twice a month and providing home visits. She will be placing referrals for services in community based on her assessments with you and your needs at home. Program nurse to follow up next week. Please contact Rebecca with any questions. ) Lacey HOA [Other] - 08/04/22 (VNA referral for PT/OT and chcf for medication management and monitoring. VNA service to start on Saturday08/04/22. ) Андрей Beth MD [Primary Care Provider] - 08/10/22 1:00 pm (Follow up scheduled for Saturday08/10/22 @ [address] Jorgensen ) Discharge Medications: New ipratropium-albuterol 0.5 mg-3 mg(2.5 mg base)/3 mL Solution For Nebulization 3 ml inhalation RQ6H WHILE AWAKE 30 Days Qty: 1 0RF gabapentin 400 mg Capsule 400 mg PO TID 7 Days Qty: 21 3RF Rx Instructions: Bubble pack for a week acetaminophen 325 mg Tablet 650 mg PO Q6H PRN (Reason: Headache/Pain Mild Scale (1-3)) 7 Days Qty: 14 3RF Rx Instructions: Bubble pack for a week hydroxyzine HCl 25 mg Tablet 25 mg PO Q6H PRN (Reason: Anxiety) 7 Days Qty: 14 3RF Rx Instructions: Bubble pack for a week trazodone 50 mg Tablet 50 mg PO BEDTIME MRX1 PRN (Reason: Insomnia) 7 Days Qty: 14 3RF Rx Instructions: Bubble pack for a week multivitamin [Daily-Juventino] Tablet 1 tab PO DAILY 7 Days Qty: 7 3RF Rx Instructions: Bubble pack for a week Continued metformin 500 mg tablet 500 mg PO BID 7 Days Qty: 14 3RF Rx Instructions: Bubble pack for a week nicotine 14 mg/24 hr patch 24 hour 1 patch topical DAILY 7 Days Qty: 7 3RF Rx Instructions: Bubble pack for a week atorvastatin 10 mg tablet 10 mg PO DAILY 7 Days Qty: 7 3RF Rx Instructions: Bubble pack for a week clonazepam 0.5 mg tablet 0.5 mg PO TID PRN (Reason: Anxiety) 7 Days Qty: 21 3RF Rx Instructions: Bubble pack for a week quetiapine 200 mg tablet 200 mg PO BEDTIME 7 Days Qty: 7 3RF Rx Instructions: Bubble pack for a week benzonatate 100 mg capsule 100 mg PO TID 7 Days Qty: 21 3RF Rx Instructions: Bubble pack for a week docusate sodium 100 mg capsule 100 mg PO DAILY 7 Days Qty: 7 3RF Rx Instructions: Bubble pack for a week omeprazole 20 mg capsule,delayed release(DR/EC) 20 mg PO DAILY 7 Days Qty: 7 3RF Rx Instructions: Bubble pack for a week montelukast 10 mg tablet 10 mg PO DAILY 7 Days Qty: 7 3RF Rx Instructions: Bubble pack for a week albuterol sulfate [Ventolin HFA] 90 mcg/actuation HFA aerosol inhaler 90 mcg inhalation 4-6XD Qty: 6.7 0RF topiramate 100 mg tablet 100 mg PO DAILY 7 Days Qty: 7 3RF Rx Instructions: Bubble pack for a week quetiapine 50 mg tablet 75 mg PO BID 7 Days Qty: 21 3RF Rx Instructions: Bubble pack for a week lurasidone 80 mg tablet 80 mg PO DAILY 7 Days Qty: 7 3RF Rx Instructions: Bubble pack for a week vilazodone [Viibryd] 40 mg tablet 40 mg PO DAILY 7 Days Qty: 7 3RF Rx Instructions: Bubble pack for a week Linzess 145 mcg capsule 145 mcg PO DAILY Qty: 7 3RF Rx Instructions: Bubble pack for a week cholecalciferol (vitamin D3) 2,000 units capsule 2,000 units PO DAILY 7 Days Qty: 7 3RF Rx Instructions: Bubble pack for a week Changed cyanocobalamin (vitamin B-12) 1,000 mcg tablet See Rx Instructions .ROUTE .COMPLEX 7 Days Qty: 7 3RF Rx Instructions: Vitamin B12 1000 mcg daily Bubble pack for a week Discontinued gabapentin 300 mg capsule 400 mg PO TID vitamin B complex [Vitamins B Complex] Tablet 1 tab PO DAILY enoxaparin [Lovenox] 40 mg/0.4 mL Syringe 40 mg subcut DAILY azithromycin 500 mg tablet 500 tab PO DAILY Discharge Orders: Discharge Order (Routine); Ordered 08/03/22 Ordered By: Tarik Snow Diet: Advance to usual diet Activity on Discharge: As tolerated Stand Alone Forms: Patient Portal Discharge page Care Plan Goals: Care plan goals achieved in this admission Health Concerns: Continue treatment with outpatient providers Plan of Treatment: Continue medication management and psychotherapy at [facility] Assessment: MIDDLE-AGED FEMALE WITH A LONG HISTORY OF BIPOLAR DISORDER ADMITTED FOR OVERDOSE ON [id number] MEDICATIONS MOST LIKELY DUE TO A SUICIDAL ATTEMPT. THE PATIENT WAS RESTARTED HER REGULAR MEDICATION HER MOOD BECAME STABLE, WITH NO EVIDENCE OF SIDE EFFECTS OR SAFETY CONCERNS. ANCILLARY SERVICES WERE ARRANGED TO ASSURE SAFETY IN THE COMMUNITY.
[2022-08-03 09:53] VITALS: PULSE 110; RESP 18; O2SAT 96
== END 2022-08-03 10:35 | disposition home or self-care (01) | DRG 753 ==
PROVIDERS: Admitting Provider Psychiatry & Neurology Psychiatry; PCP Internal Medicine; Visit Provider Psychiatry & Neurology Psychiatry
DX: F31.30 Bipolar disorder, current episode depressed, mild or moderate severity, unspecified (principal); J18.9 Pneumonia, unspecified organism; J44.0 Chronic obstructive pulmonary disease with (acute) lower respiratory infection; F17.210 Nicotine dependence, cigarettes, uncomplicated; Z71.6 Tobacco abuse counseling; K58.1 Irritable bowel syndrome with constipation; E11.9 Type 2 diabetes mellitus without complications; F43.10 Post-traumatic stress disorder, unspecified; Z79.84 Long term (current) use of oral hypoglycemic drugs; Z79.899 Other long term (current) drug therapy
CPT/HCPCS: 36415; 80048; 81001; 82947; 97161; J1650

== ENCOUNTER 2022-09-19 09:55 | Outpatient (REF) | payer OTHER, SELFPAY ==
[2022-09-19 10:51] LABS: Erythrocyte Sedimentation Rate 14 MM/HR (0-20)
[2022-09-19 11:12] LABS: Folate 4.7 ng/mL (> or = 4.0); Vitamin B12 > 2000 pg/mL (200-900)
[2022-09-21 19:53] LABS: Homocysteine 14.6 umol/L (<10.4)
[2022-09-22 14:29] LABS: Anti Nuclear Antibody Screen NEGATIVE (NEGATIVE)
[2022-09-24 09:39] LABS: IgA 238 mg/dL (70-320); IgG 812 mg/dL (600-1540); IgM 54 mg/dL (50-300)
[2022-09-25 07:24] LABS: Cardiolipin IgG Ab <2.0 GPL-U/mL; Cardiolipin IgM Ab <2.0 MPL-U/mL
== END 2022-09-19 09:56 | disposition home or self-care (01) ==
LOC: HO.LAB 09:55
PROVIDERS: Visit Provider Psychiatry & Neurology Neurology
DX: I67.9 Cerebrovascular disease, unspecified (principal); F01.50 Vascular dementia, unspecified severity, without behavioral disturbance, psychotic disturbance, mood disturbance, and anxiety
CPT/HCPCS: 36415; 82607; 82746; 82784; 83090; 85652; 86038; 86147

== ENCOUNTER 2024-11-04 10:05 | Outpatient (AMB) | payer MEDICARE, MEDICAID, SELFPAY ==
--- NOTE | 2024-11-04 10:24 | MHC.OFFVIS ---
Intake Visit Reasons: 6 mnts / AD Allergies bupropion (From WELLBUTRIN) Allergy (Unknown, Unverified 07/15/20 14:14) ITCHING morphine (MORPHINE) Allergy (Unknown, Unverified 07/15/20 14:14) ITCHING nicotine (From Nicoderm CQ) Adverse Reaction (Mild, Unverified 07/15/20 14:14) SKIN IRRITATION Medication List - Last Reconciled 11/04/24 by Yesi Santos MD acetaminophen 650 mg (2 x 325 mg) PO Q6H PRN 7 days albuterol sulfate 90 mcg/actuation (Ventolin HFA) 90 mcg inhalation 4-6XD atorvastatin 10 mg PO DAILY 7 days benzonatate 100 mg PO TID 7 days [cholecalciferol (vitamin D3) 2,000 multiple units PO DAILY 7 days] clonazepam 0.5 mg PO TID PRN 7 days cyanocobalamin (vitamin B-12) Vitamin B12 1000 mcg daily Bubble pack for a week 7 days docusate sodium 100 mg PO DAILY 7 days gabapentin 400 mg PO TID 7 days hydroxyzine HCl 25 mg PO Q6H PRN 7 days ipratropium-albuterol 0.5 mg-3 mg(2.5 mg base)/3 mL 3 mL inhalation RQ6H WHILE AWAKE 30 days linaclotide (Linzess) 145 mcg PO DAILY lurasidone 80 mg PO DAILY 7 days memantine 10 mg PO BID metformin 500 mg PO BID 7 days montelukast 10 mg PO DAILY 7 days multivitamin (Daily-Juventino tablet) 1 tab PO DAILY 7 days nicotine 1 patch topical DAILY 7 days omeprazole 20 mg PO DAILY 7 days quetiapine 200 mg PO BEDTIME 7 days quetiapine 75 mg (1.5 x 50 mg) PO BID 7 days topiramate 100 mg PO DAILY 7 days trazodone 50 mg PO BEDTIME MRX1 PRN 7 days vilazodone (Viibryd) 40 mg PO DAILY 7 days HPI Comments Details: 64 years old right-handed woman with past medical history of PTSD, fibromyalgia, depression, electroconvulsive therapy, HTN, headaches, and vascular dementia. She was followed by a psychiatrist though she has not seen one for a while. Her mood was ok. She has started smoking a pipe. Sleep was erratic. She was walking with a walker. Daughter stated that she was happy or elevated lately,. [facility] Medical History (Updated 11/04/24 @ 10:33 by Yesi Santos MD) Chronic tension type headache Peroneal neuropathy Hereditary peripheral neuropathy Peripheral neuropathy Fibromyalgia COPD (chronic obstructive pulmonary disease) Breast cancer RLS (restless legs syndrome) Insomnia Anxiety Bipolar disorder Depression Cerebral microvascular disease Encephalopathy Syncope Social History Household Members: Family Household Members Other:: lives with cousin Adelita Housing: Apartment Do you presently have visiting nurse or other home services: No Patient Tobacco Use Status: Current everyday Tobacco user Tobacco use type: Cigarette Cigarette Packs Per Day: 1 Cigarettes Per Day: 6 e-Cigarette/Vaping Use: Never Used Second Hand Smoke Exposure: No service: No Review of Systems Const Details: Constitutional:?No fever, chills, fatigue, weight loss, or night sweats. HEENT:?No headache, vision changes, hearing loss, nasal congestion, sore throat. Endocrine:?No heat/cold intolerance, polydipsia, polyuria, or hair/skin changes. Hematologic/Lymphatic:?No easy bruising, bleeding, or lymphadenopathy. Integumentary (Skin):?No rash, lesions, itching, or color changes. ? Physical Exam Neuro Other: Mental Status: Alert and oriented to person, place, and time. Normal attention. Normal spontaneous speech, fluency, and comprehension. Cranial Nerves: CN II: Visual dunlap full to confrontation, visual acuity intact. CN III, IV, : Pupils equal, round, reactive to light and accommodation. Extraocular movements are normal. CN V: Facial sensation is normal. CN VII: Facial movements symmetrical. CN VIII: Hearing intact to bedside conversation is normal. CN IX, X: Palate elevates symmetrically. CN XI: Shoulder shrug and head turn symmetrical. CN XII: Tongue midline without atrophy or fasciculations. Extrapyramidal: Full facial expressions and blinking. No rigidity. Movements are appropriate with no tremor or abnormality. Speech: Normal; no dysarthria or tremor. Assessment & Plan Assessment & Plan (1) Vascular dementia: Comment: CT brain WO at [facility] in September 2022: Mod MVD CTA brain and neck at [facility] in September 2022: No sig stenosis NCV/EMG LE (in office) Moderate to severe right and mild left peroneal neuropathy. 09/26/22. [place] [facility] [place]VD [place] [facility] [place] [facility] [place]: mod MVD [place] [facility] [place]. Code(s): F01.50 - Vascular dementia, unspecified severity, without behavioral disturbance, psychotic disturbance, mood disturbance, and anxiety Category: Medical Qualifiers: Dementia severity: moderate Dementia behavioral or psychological symptom: with other behavioral disturbance Qualified Code(s): F01.B18 - Vascular dementia, moderate, with other behavioral disturbance (2) Chronic tension type headache: Code(s): G44.229 - Chronic tension-type headache, not intractable Category: Medical Qualifiers: Intractability: not intractable Qualified Code(s): G44.229 - Chronic tension-type headache, not intractable (3) Fibromyalgia: Code(s): M79.7 - Fibromyalgia Category: Medical Plan Impression: a: Vascular dementia b: Bipolar do and PTSD treated by psychiatry c: Chronic tension type headaches d: Fibromyalgia syndrome Rec: a: Memantine 10mg bid b: Donepezil was not prescribed due to potential interaction with quetiapine c: Trazodone 50mg at night Medications: New memantine 10 mg PO BID 180 tabs 1RF Changed From trazodone Bubble pack for a week 50 mg PO BEDTIME MRX1 7 days PRN 14 tabs 3RF Insomnia To trazodone Bubble pack for a week 50 mg PO BEDTIME MRX1 PRN 90 tabs 1RF Insomnia 90 days Coding Level of Care Code Est Pt Level 4 (01361) Diagnoses Moderate vascular dementia with other behavioral disturbance F01.B18 Dementia severity: moderate Dementia behavioral or psychological symptom: with other behavioral disturbance Chronic tension-type headache, not intractable G44.229 Intractability: not intractable Fibromyalgia M79.7
--- OUTSIDE RECORDS SUMMARY | 2024-11-04 10:54 | XMS_ITS ---
Author Name [facility] Organization Unknown Care Team Organization Name Specialty Phone Email Start Date End Da te [facility] Shalom Jorgensen Primary Care 10/11/2022 024 [facility] Primary [facility] 02/13/2022 11/25/19 24
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
== END 2024-11-04 10:41 | disposition home or self-care (01) ==
LOC: HO.HSM 10:06
PROVIDERS: PCP Internal Medicine; Visit Provider Psychiatry & Neurology Neurology
DX: F01.B18 Vascular dementia, moderate, with other behavioral disturbance (principal); G44.229 Chronic tension-type headache, not intractable; M79.7 Fibromyalgia
CPT/HCPCS: 99214

== ENCOUNTER → 2024-11-04 10:05 | Outpatient (BNVA) | payer MEDICARE, MEDICAID, SELFPAY | PROVIDERS: PCP Internal Medicine; Visit Provider Psychiatry & Neurology Neurology | DX: F01.B18 Vascular dementia, moderate, with other behavioral disturbance (principal); G44.229 Chronic tension-type headache, not intractable; M79.7 Fibromyalgia | CPT/HCPCS: 99212 ==